=== PATIENT | female | born 1955 | race Caucasian/White ===

== ENCOUNTER 2019-08-26 09:50 | Outpatient (CLI) | payer BC, SELFPAY ==
[2019-08-26 10:05] LABS: Basophils Absolute Auto 0.05 K/mm3 (0.00-0.10); Basophils Percent Auto 0.8 % (0.0-1.0); Eosinophils Percent Auto 5.1 % (1.0-6.0); Hematocrit 38.6 % (35.0-42.0); Hemoglobin 12.9 g/dL (11.7-13.8); Immature Granulocyte Absolute 0.03 K/mm3 (0.00-0.00); Immature Granulocyte Percent A 0.5 % (0.0-0.0); Lymphocytes Absolute Auto 1.43 K/mm3 (1.10-4.50); Lymphocytes Percent Auto 24.2 % (18.0-42.0); Mean Corpuscular HGB Conc 33.4 g/dL (32.0-36.0); Mean Corpuscular Hemoglobin 32.1 pg (27.0-31.0); Mean Platelet Volume 10.1 fl (9.2-11.8); Monocytes Absolute Auto 0.45 K/mm3 (0.10-0.90); Monocytes Percent Auto 7.6 % (2.0-11.0); Neutrophils Absolute Auto 3.7 K/mm3 (1.7-7.2); Neutrophils Percent Auto 61.8 % (50.0-70.0); Platelet Count Result 244 K/mm3 (150-420); Red Blood Count 4.02 M/mm3 (4.20-5.40); Red Cell Distribution Width 13.5 % (11.6-14.4); White Blood Count 5.9 K/mm3 (4.8-10.8)
[2019-08-26 10:06] LABS: Appearance Urine Clear (Clear); Bilirubin Urine Negative (Negative); Color Urine Yellow (Yellow); Glucose Urine UA Negative (Negative); Ketones Urine Negative (Negative); Leukocyte Esterase Ur 1+ (Negative); Nitrate Urine Negative (Negative); Protein Urine Negative (Negative); Specific Grav Ur 1.025 (1.010-1.020); Urobilinogen Urine 0.2 mg/dL (0.2-1.0)
[2019-08-26 10:12] LABS: Creatinine Urine 97.88 mg/dL (40-278); MALB Creatinine Ratio 6.9 mg/g (0-30); Microalbumin Urine Random 6.8 mg/L
[2019-08-26 10:14] LABS: Hemoglobin A1C 6.2 % (<5.7)
[2019-08-26 10:15] LABS: Add Urine Microscopic? YES; Bacteria Urine Trace /hpf; Blood Urine Trace (Negative); RBC Urine 0-2 /hpf (0-2); Squamous Epithelial Cell Urine Few /hpf (Few); WBC Urine 0-3 /hpf (0-3)
[2019-08-26 10:43] LABS: Alanine Aminotransferase 42 U/L (14-59); Albumin Level 3.9 g/dL (3.4-5.0); Alkaline Phosphatase 69 U/L (46-116); Anion Gap 14.5 mmol/L (7-16); Aspartate Amino Transferase 27 U/L (15-37); Bilirubin,Total 0.3 mg/dL (0.00-1.00); Blood Urea Nitrogen 33 mg/dL (7-18); Calcium 9.3 mg/dL (8.5-10.1); Carbon Dioxide 28 mmol/L (21-32); Chloride 105 mmol/L (98-108); Cholesterol 207 mg/dL (0-200); Creatine Kinase 106 U/L (26-192); Estimated Glomerular Filt Rate 39; Glucose 99 mg/dL (70-99); HDL Direct 74 mg/dL (40-60); LDL Cholesterol Calculated 101 mg/dL (<130); Osmolality Calculated 303 mOsm/kg (285-295); Potassium 4.5 mmol/L (3.5-5.1); Sodium 143 mmol/L (136-145); Total Protein 7.5 g/dL (6.4-8.2); Triglycerides 160 mg/dL (0-150)
[2019-08-29 19:08] LABS: Vitamin D 25 Hydroxy 49 ng/mL (30-100)
[2019-08-30 14:18] LABS: Parathyroid Intact 70 pg/mL (14-64)
== END 2019-08-26 09:51 | disposition home or self-care (01) ==
LOC: CHSLAB 09:52
PROVIDERS: PCP Internal Medicine; Visit Provider Internal Medicine
DX: R73.01 Impaired fasting glucose (principal); E21.0 Primary hyperparathyroidism; I10 Essential (primary) hypertension; M18.2 Bilateral post-traumatic osteoarthritis of first carpometacarpal joints
CPT/HCPCS: 36415; 80053; 80061; 81001; 82043; 82306; 82550; 83036; 83970; 85025

== ENCOUNTER 2019-10-14 11:08 | Outpatient (CLI) | payer BC, SELFPAY ==
[2019-10-14 11:46] LABS: Anion Gap 10.8 mmol/L (7-16); Blood Urea Nitrogen 32 mg/dL (7-18); Calcium 9.5 mg/dL (8.5-10.1); Carbon Dioxide 29 mmol/L (21-32); Chloride 104 mmol/L (98-108); Estimated Glomerular Filt Rate 38; Glucose 101 mg/dL (70-99); Osmolality Calculated 294 mOsm/kg (285-295); Potassium 4.8 mmol/L (3.5-5.1); Sodium 139 mmol/L (136-145)
== END 2019-10-14 11:09 | disposition home or self-care (01) ==
LOC: CHSLAB 11:10
PROVIDERS: PCP Internal Medicine; Visit Provider Internal Medicine
DX: N18.2 Chronic kidney disease, stage 2 (mild) (principal)
CPT/HCPCS: 36415; 80048

== ENCOUNTER 2019-11-16 08:53 | Outpatient (CLI) | payer BC, SELFPAY ==
--- NOTE | ~2019-11-16 | US_ITS ---
EXAMINATION: US retroperitoneal comp DATE: 11/16/2019 09:47 INDICATION: Stage II chronic kidney disease TECHNIQUE: Multiple ultrasound grayscale images of the kidneys were obtained. COMPARISON: 02/20/2017 FINDINGS: The right kidney measures 9.8 x 4.3 x 5.0 cm. The left kidney measures 8.5 x 5.2 x 5.0 cm. Relatively symmetric mild bilateral renal cortical thinning. The kidneys demonstrate normal echogenicity. There is no hydronephrosis in either kidney. No stones identified. The bladder is normal. Diffuse hepatic steatosis. IMPRESSION: 1. Mild bilateral renal cortical atrophy without hydronephrosis. 2. Diffuse hepatic steatosis. Reviewed, dictated and finalized at location B.
== END 2019-11-16 08:54 | disposition home or self-care (01) ==
PROVIDERS: PCP Internal Medicine; Visit Provider Internal Medicine
DX: N18.2 Chronic kidney disease, stage 2 (mild) (principal)
CPT/HCPCS: 76770

== ENCOUNTER 2019-12-14 10:02 | Outpatient (CLI) | payer BC, SELFPAY ==
[2019-12-15 01:34] LABS: SARS-CoV-2 RNA PCR Negative
== END 2019-12-14 10:03 | disposition home or self-care (01) ==
PROVIDERS: PCP Internal Medicine; Visit Provider Internal Medicine
DX: Z20.828 Contact with and (suspected) exposure to other viral communicable diseases (principal)
CPT/HCPCS: 87635; C9803; U0003

== ENCOUNTER 2020-03-16 09:20 | Outpatient (CLI) | payer BC, SELFPAY ==
[2020-03-16 09:32] LABS: Basophils Absolute Auto 0.06 K/mm3 (0.00-0.10); Eosinophils Absolute Auto 0.28 K/mm3 (0.02-0.50); Eosinophils Percent Auto 4.6 % (1.0-6.0); Hematocrit 38.8 % (35.0-42.0); Hemoglobin 12.7 g/dL (11.7-13.8); Immature Granulocyte Absolute 0.02 K/mm3 (0.00-0.00); Immature Granulocyte Percent A 0.3 % (0.0-0.0); Lymphocytes Absolute Auto 1.87 K/mm3 (1.10-4.50); Lymphocytes Percent Auto 30.5 % (18.0-42.0); Mean Corpuscular HGB Conc 32.7 g/dL (32.0-36.0); Mean Corpuscular Volume 97.7 fL (78.0-102.0); Monocytes Percent Auto 6.5 % (2.0-11.0); Neutrophils Absolute Auto 3.5 K/mm3 (1.7-7.2); Neutrophils Percent Auto 57.1 % (50.0-70.0); Platelet Count Result 229 K/mm3 (150-420); Red Blood Count 3.97 M/mm3 (4.20-5.40); White Blood Count 6.1 K/mm3 (4.8-10.8)
[2020-03-16 09:34] LABS: Add Urine Microscopic? YES; Appearance Urine Clear (Clear); Bilirubin Urine Negative (Negative); Blood Urine Negative (Negative); Color Urine Yellow (Yellow); Glucose Urine UA Negative (Negative); Ketones Urine Negative (Negative); Leukocyte Esterase Ur 1+ LEU/UL (Negative); Nitrate Urine Negative (Negative); Protein Urine Negative (Negative); Specific Grav Ur 1.025 (1.010-1.020); Urobilinogen Urine 0.2 mg/dL (0.2-1.0)
[2020-03-16 09:44] LABS: Creatinine Urine 129.87 mg/dL (40-278); Microalbumin Urine Random < 13.0 mg/L
[2020-03-16 09:47] LABS: Hemoglobin A1C 5.9 % (<5.7)
[2020-03-16 09:52] LABS: Bacteria Urine 1+ /hpf; RBC Urine None seen /hpf (0-2); Squamous Epithelial Cell Urine Moderate /hpf (Few); WBC Urine 0-3 /hpf (0-3)
[2020-03-16 10:25] LABS: Alanine Aminotransferase 33 U/L (14-59); Alkaline Phosphatase 59 U/L (46-116); Anion Gap 7 mmol/L (8-16); Aspartate Amino Transferase 22 U/L (15-37); Bilirubin,Total 0.7 mg/dL (0.00-1.00); Blood Urea Nitrogen 29 mg/dL (7-18); Calcium 9.4 mg/dL (8.5-10.1); Carbon Dioxide 29 mmol/L (21-32); Chloride 102 mmol/L (98-108); Cholesterol 197 mg/dL (0-200); Creatine Kinase 115 U/L (26-192); Estimated Glomerular Filt Rate 48; Free T3 2.58 pg/mL (2.18-3.98); Free T4 Free Thyroxine 1.12 ng/dL (0.76-1.46); Glucose 106 mg/dL (70-99); HDL Direct 81 mg/dL (40-60); LDL Cholesterol Calculated 98 mg/dL (<130); Osmolality Calculated 291 mOsm/kg (285-295); Potassium 4.7 mmol/L (3.5-5.1); Sodium 138 mmol/L (136-145); Thyroid Stimulating Hormone 1.81 uIU/mL (0.36-3.74); Total Protein 7.5 g/dL (6.4-8.2); Triglycerides 90 mg/dL (0-150)
[2020-03-19 11:40] LABS: Vitamin D 25 Hydroxy 68 ng/mL (30-100)
[2020-03-19 14:55] LABS: Parathyroid Intact 63 pg/mL (14-64)
== END 2020-03-16 09:21 | disposition home or self-care (01) ==
LOC: CHSLAB 09:21
PROVIDERS: PCP Internal Medicine; Visit Provider Internal Medicine
DX: R73.01 Impaired fasting glucose (principal); E78.5 Hyperlipidemia, unspecified; R31.9 Hematuria, unspecified; E21.0 Primary hyperparathyroidism
CPT/HCPCS: 36415; 80053; 80061; 81001; 82043; 82306; 82550; 83036; 83970; 84439; 84443; 84481; 85025; 87086

== ENCOUNTER 2020-05-29 15:20 | Outpatient (CLI) | payer BC, SELFPAY ==
--- NOTE | ~2020-05-29 | DEXA_ITS ---
Bone Density Report Name: Ami Escobar Age: 64 Sex: Female Ethnicity: White Date of : 1955 Indication: postmenopausal; screening for osteoporosis; asthma or emphysema; Referring Provider: Gwendolyn Avina Study: Bone densitometry was performed. Exam Date: May 29, 2020 Accession number: [id number] Bone Density: Region BMD T-score Z-score Classification AP Spine(L2, L3, L4) 1.397 2.9 4.8 Normal Femoral Neck (Left) 0.657 -1.7 -0.2 Osteopenia Total Hip (Left) 0.888 -0.4 0.8 Normal Femoral Neck (Right) 0.673 -1.6 0.0 Osteopenia Total Hip (Right) 0.880 -0.5 0.8 Normal Femoral Neck Mean 0.665 -1.7 -0.1 Osteopenia Total Hip Mean 0.884 -0.5 0.8 Normal World Health Organization criteria for BMD impression classify patients as: Normal (T-score at or above -1.0), Osteopenia (T-score between -1.0 and -2.5), or Osteoporosis (T-score at or below -2.5). 10-year Fracture Risk(1): Major Osteoporotic Fracture 9.5% Hip Fracture 1.3% Reported Risk Factors: [place] (), Neck BMD=0.657, BMI=23.6 (1) FRAX(R) Version 3.08. Fracture probability calculated for an untreated patient. Fracture probability may be lower if the patient has received treatment. Previous Exams: Region Exam Age BMD T-score BMD Change BMD Change Date g/cm2 vs Baseline vs Previous AP Spine (L2-L4) 05/29/2020 64 1.397 2.9 -0.159 (-10.2% -0.159 (-10.2% 10/15/2017 62 1.556 4.3 Total Hip(Left) 05/29/2020 64 0.888 -0.4 -0.007 (-0.8%) -0.007 (-0.8%) 10/15/2017 62 0.895 -0.4 *Denotes significance at 95% confidence level, LSC for AP Spine = 0.022 g/cm2, LSC for Total Hip = 0.027 g/cm2 # Denotes dissimilar scan types or analysis methods Clinical Information Provided by Patient: Has used the following medications: Vitamin D Has the following medical conditions: Asthma or Emphysema Patient maximum height was 61 No regular weight bearing exercise Drinks caffeinated beverages Onset of menses at age 11 Number of children 3 Impression: The patient has low bone mass, based on the Left Femoral Neck T-score. No significant bone loss was observed. Discussion: BONE DENSITY IS LOW AT ONE OR MORE SKELETAL SITES. This patient's lowest T-score is low at one or more skeletal sites. It meets the World Health Organization's (WHO) criteria for ?low bone mass? (T-score between -1.0 and -2.5). The patient's 10-year risk of fracture as calculated by FRAX is less than the threshold where ph
== END 2020-05-29 15:21 | disposition home or self-care (01) ==
LOC: CHSIMG 15:21
PROVIDERS: PCP Internal Medicine; Visit Provider Internal Medicine
DX: M81.0 Age-related osteoporosis without current pathological fracture (principal)
CPT/HCPCS: 77080

== ENCOUNTER 2020-09-07 12:09 | Outpatient (CLI) | payer BC, SELFPAY ==
[2020-09-07 12:25] LABS: Basophils Absolute Auto 0.07 K/mm3 (0.00-0.10); Basophils Percent Auto 0.9 % (0.0-1.0); Eosinophils Absolute Auto 0.25 K/mm3 (0.02-0.50); Eosinophils Percent Auto 3.3 % (1.0-6.0); Hematocrit 40.2 % (35.0-42.0); Hemoglobin 13.5 g/dL (11.7-13.8); Immature Granulocyte Absolute 0.02 K/mm3 (0.00-0.00); Immature Granulocyte Percent A 0.3 % (0.0-0.0); Lymphocytes Absolute Auto 2.17 K/mm3 (1.10-4.50); Lymphocytes Percent Auto 28.9 % (18.0-42.0); Mean Corpuscular HGB Conc 33.6 g/dL (32.0-36.0); Mean Corpuscular Hemoglobin 31.6 pg (27.0-31.0); Mean Corpuscular Volume 94.1 fL (78.0-102.0); Mean Platelet Volume 10.5 fl (9.2-11.8); Monocytes Absolute Auto 0.42 K/mm3 (0.10-0.90); Monocytes Percent Auto 5.6 % (2.0-11.0); Neutrophils Absolute Auto 4.6 K/mm3 (1.7-7.2); Platelet Count Result 266 K/mm3 (150-420); Red Blood Count 4.27 M/mm3 (4.20-5.40); Red Cell Distribution Width 12.8 % (11.6-14.4); White Blood Count 7.5 K/mm3 (4.8-10.8)
[2020-09-07 12:30] LABS: Add Urine Microscopic? YES; Appearance Urine Clear (Clear); Bilirubin Urine Negative (Negative); Blood Urine Trace-Intact (Negative); Color Urine Light Yellow (Yellow); Glucose Urine UA Negative (Negative); Hemoglobin A1C 6.2 % (<5.7); Ketones Urine Negative (Negative); Leukocyte Esterase Ur 2+ (Negative); Nitrate Urine Negative (Negative); Protein Urine Negative (Negative); RBC Urine 0-2 /hpf (0-2); Specific Grav Ur 1.025 (1.010-1.020); Urobilinogen Urine 0.2 mg/dL (0.2-1.0); pH Urine 5.5 (5.0-8.0)
[2020-09-07 12:31] LABS: Bacteria Urine 1+ /hpf; Squamous Epithelial Cell Urine Few /hpf (Few); WBC Urine 16-20 /hpf (0-3)
[2020-09-07 13:11] LABS: Alanine Aminotransferase 35 U/L (14-59); Albumin Level 4.1 g/dL (3.4-5.0); Alkaline Phosphatase 74 U/L (46-116); Anion Gap 10 mmol/L (8-16); Aspartate Amino Transferase 25 U/L (15-37); Bilirubin,Total 0.9 mg/dL (0.00-1.00); Blood Urea Nitrogen 28 mg/dL (7-18); Calcium 9.7 mg/dL (8.5-10.1); Carbon Dioxide 27 mmol/L (21-32); Chloride 103 mmol/L (98-108); Cholesterol 208 mg/dL (0-200); Creatine Kinase 128 U/L (26-192); Estimated Glomerular Filt Rate 48; Glucose 103 mg/dL (70-99); HDL Direct 80 mg/dL (40-60); LDL Cholesterol Calculated 115 mg/dL (<130); Osmolality Calculated 295 mOsm/kg (285-295); Potassium 4.7 mmol/L (3.5-5.1); Sodium 140 mmol/L (136-145); Total Protein 7.5 g/dL (6.4-8.2); Triglycerides 66 mg/dL (0-150)
[2020-09-11 15:33] LABS: Vitamin D 25 Hydroxy 69 ng/mL (30-100)
== END 2020-09-07 12:10 | disposition home or self-care (01) ==
LOC: CHSLAB 12:11
PROVIDERS: PCP Internal Medicine; Visit Provider Internal Medicine
DX: E78.2 Mixed hyperlipidemia (principal); I12.9 Hypertensive chronic kidney disease with stage 1 through stage 4 chronic kidney disease, or unspecified chronic kidney disease; N18.2 Chronic kidney disease, stage 2 (mild); M81.0 Age-related osteoporosis without current pathological fracture; R73.01 Impaired fasting glucose
CPT/HCPCS: 36415; 80053; 80061; 81001; 82306; 82550; 83036; 85025

== ENCOUNTER 2021-03-18 12:42 | Outpatient (CLI) | payer BC, SELFPAY ==
[2021-03-18 13:03] LABS: Basophils Absolute Auto 0.06 K/mm3 (0.00-0.10); Basophils Percent Auto 0.9 % (0.0-1.0); Eosinophils Absolute Auto 0.27 K/mm3 (0.02-0.50); Eosinophils Percent Auto 4.2 % (1.0-6.0); Hematocrit 39.7 % (35.0-42.0); Hemoglobin 13.3 g/dL (11.7-13.8); Immature Granulocyte Absolute 0.02 K/mm3 (0.00-0.00); Immature Granulocyte Percent A 0.3 % (0.0-0.0); Lymphocytes Absolute Auto 1.89 K/mm3 (1.10-4.50); Lymphocytes Percent Auto 29.6 % (18.0-42.0); Mean Corpuscular HGB Conc 33.5 g/dL (32.0-36.0); Mean Corpuscular Hemoglobin 32.4 pg (27.0-31.0); Mean Corpuscular Volume 96.6 fL (78.0-102.0); Mean Platelet Volume 10.3 fl (9.2-11.8); Monocytes Absolute Auto 0.43 K/mm3 (0.10-0.90); Monocytes Percent Auto 6.7 % (2.0-11.0); Neutrophils Absolute Auto 3.7 K/mm3 (1.7-7.2); Neutrophils Percent Auto 58.3 % (50.0-70.0); Platelet Count Result 254 K/mm3 (150-420); Red Blood Count 4.11 M/mm3 (4.20-5.40); Red Cell Distribution Width 13.1 % (11.6-14.4); White Blood Count 6.4 K/mm3 (4.8-10.8)
[2021-03-18 13:09] LABS: Appearance Urine Clear (Clear); Bilirubin Urine Negative (Negative); Color Urine Light Yellow (Yellow); Glucose Urine UA Negative (Negative); Ketones Urine Negative (Negative); Leukocyte Esterase Ur 1+ (Negative); Nitrate Urine Negative (Negative); Protein Urine Negative (Negative); Urobilinogen Urine 0.2 mg/dL (0.2-1.0)
[2021-03-18 13:35] LABS: Hemoglobin A1C 6.4 % (<5.7)
[2021-03-18 13:42] LABS: Add Urine Microscopic? YES; Bacteria Urine 1+ /hpf; Blood Urine Trace-Intact (Negative); RBC Urine None seen /hpf (0-2); Squamous Epithelial Cell Urine Few /hpf (Few)
[2021-03-18 15:05] LABS: Alanine Aminotransferase 42 U/L (14-59); Albumin Level 4.1 g/dL (3.4-5.0); Alkaline Phosphatase 73 U/L (46-116); Anion Gap 12 mmol/L (8-16); Aspartate Amino Transferase 26 U/L (15-37); Bilirubin,Total 0.9 mg/dL (0.00-1.00); Blood Urea Nitrogen 26 mg/dL (7-18); Calcium 9.7 mg/dL (8.5-10.1); Carbon Dioxide 28 mmol/L (21-32); Chloride 100 mmol/L (98-108); Cholesterol 209 mg/dL (0-200); Creatine Kinase 98 U/L (26-192); Estimated Glomerular Filt Rate 49; Free T4 Free Thyroxine 1.27 ng/dL (0.76-1.46); Glucose 105 mg/dL (70-99); HDL Direct 83 mg/dL (40-60); LDL Cholesterol Calculated 106 mg/dL (<130); Osmolality Calculated 294 mOsm/kg (285-295); Potassium 4.6 mmol/L (3.5-5.1); Sodium 140 mmol/L (136-145); Thyroid Stimulating Hormone 2.47 uIU/mL (0.36-3.74); Total Protein 7.6 g/dL (6.4-8.2); Triglycerides 99 mg/dL (0-150)
[2021-03-21 14:15] LABS: Vitamin D 25 Hydroxy 72 ng/mL (30-100)
[2021-03-26 20:53] LABS: Parathyroid Intact 53 pg/mL (14-64)
== END 2021-03-18 12:43 | disposition home or self-care (01) ==
LOC: CHSLAB 12:44
PROVIDERS: PCP Internal Medicine; Visit Provider Internal Medicine
DX: E78.2 Mixed hyperlipidemia (principal); I12.9 Hypertensive chronic kidney disease with stage 1 through stage 4 chronic kidney disease, or unspecified chronic kidney disease; N18.2 Chronic kidney disease, stage 2 (mild); M81.0 Age-related osteoporosis without current pathological fracture; R73.01 Impaired fasting glucose; E21.0 Primary hyperparathyroidism
CPT/HCPCS: 36415; 80053; 80061; 81001; 82306; 82550; 83036; 83970; 84439; 84443; 84481; 85025

== ENCOUNTER 2021-06-16 01:33 | Day surgery (SDC) | payer BC, SELFPAY ==
[2021-06-04 09:11] VITALS: BMI 23.6
[2021-06-16 06:23] VITALS: BP 178/101; PULSE 97; RESP 22; TEMP 36.9; O2SAT 100; BMI 23.3
[2021-06-16] MEDS: LACTATED RINGERS 1,000 ML 150 ML IV CONT (06:38)
--- NOTE | 2021-06-16 07:26 | P.PNAN_ITS ---
Anes - Initial Pre Proc Eval Procedure: Operation Date: 06/16/21 07:30 Proposed Procedures p Screening Colonoscopy - Néstor Bates MD Date/Time: 06/16/21 07:26 Surgeon: Néstor Bates MD Pre Op Diagnosis: hx of colon polyps Patient Data Age: 65 Gender: F Height: 1.55 m Weight: 56.2 kg Last Vital Signs Temp 98.4 F 06/16/21 06:23 Pulse 97 06/16/21 06:23 Resp 22 H 06/16/21 06:23 BP 178/101 H 06/16/21 06:23 Pulse Ox 100 06/16/21 06:23 Allergies Allergy/AdvReac Type Severity Reaction Status Date / Time No Known Allergies Allergy Verified 06/16/21 06:20 Home Medications Medication Instructions Recorded Confirmed Type atorvastatin 40 mg PO DAILY 06/04/21 06/04/21 History carvedilol 25 mg PO DAILY 06/04/21 06/04/21 History clonidine HCl 0.1 mg PO DAILY 06/04/21 06/04/21 History montelukast 10 mg PO DAILY 06/04/21 06/04/21 History valsartan 160 mg PO DAILY 06/04/21 06/04/21 History Patient hx anesthesia problems: none Family hx anesthesia problems: none Results Review: All pre-operative results and documents have been reviewed as part of the pre-operative evaluation. [facility] Social History Social History Smoking status: Never smoker Alcohol intake: current Drinks per week: 5 Substance use type: does not use Living arrangements: alone Spiritual care concerns: No Anes - Eval Final PreProcedure Day of Procedure 06/16/21 07:26 Patient weight: normal Heart: regular rate and rhythm Lungs: clear to auscultation Airway: Mallampati scale class II Neurological: alert and oriented Last oral intake: >/= 8 hours ASA classification: III Emergent: no Anesthetic plan: proceed Anesthesia type and monitoring: general GIVS and standard monitoring Results Review: All pre-operative results and documents have been reviewed as part of the pre-operative evaluation. Informed Consent: The patient's anesthetic plan and its attendant risks and benefits were discussed with the patient/family/POA. Questions were solicited and answers provided to the satisfaction of the patient/family/POA.
--- NOTE | 2021-06-16 07:28 | WPDGICN ---
Assessment and Plan Assessment and plan (1) History of colon polyps: Code(s): Z86.010 - Personal history of colonic polyps Status: Acute Assessment and Plan: Patient has a history of colon polyps in the past. Most recently 2016. Plan is for surveillance colonoscopy at this time. Further recommendations will be given after endoscopy. GI Consult Note Consult date/time: 06/16/21 07:28 HPI: Ami Escobar is a 65 year old female Presents for screening colonoscopy. Patient has a history of colon polyp removed in 2017. She reports her current weight appetite bowel movements are normal. She denies abdominal pain. She has had no bleeding. Patient presents today for screening colonoscopy. Review of Systems Review of Systems: All systems reviewed & are unremarkable except as noted in HPI and below PMFSH Social History Social History Smoking status: Never smoker Alcohol intake: current Drinks per week: 5 Substance use type: does not use Living arrangements: alone Spiritual care concerns: No Meds Home Medications and Allergies Home Medications Medication Instructions Recorded Confirmed Type atorvastatin 40 mg PO DAILY 06/04/21 06/04/21 History carvedilol 25 mg PO DAILY 06/04/21 06/04/21 History clonidine HCl 0.1 mg PO DAILY 06/04/21 06/04/21 History montelukast 10 mg PO DAILY 06/04/21 06/04/21 History valsartan 160 mg PO DAILY 06/04/21 06/04/21 History Allergies Allergy/AdvReac Type Severity Reaction Status Date / Time No Known Allergies Allergy Verified 06/16/21 06:20 Vital Signs Vital Signs - 24 hr 06/16/21 06:23 Temperature 98.4 F Pulse Rate 97 Respiratory Rate 22 H Blood Pressure 178/101 H Pulse Oximetry 100 Exam Narrative: Physical exam reveals patient be alert. Vital signs stable. HEENT exam is unremarkable. Patient is anicteric. Lungs are clear to auscultation and percussion. Heart is without murmur or extra sounds. Abdominal exam bowel sounds present soft nontender with no organomegaly. Digital external rectal exam is normal.
[2021-06-16] MEDS: SIMETHICONE ORAL SUSPENSION 20 MG/0.3 ML 30 ML BOTTLE 0.6 ML IRRIGATION (07:47)
[2021-06-16 07:50] VITALS: BP 140/87; PULSE 95; RESP 17; O2SAT 98
[2021-06-16 08:00] VITALS: BP 158/93; PULSE 90; RESP 18; O2SAT 100
[2021-06-16 08:10] VITALS: BP 173/104; PULSE 83; RESP 20; O2SAT 100
== END 2021-06-16 08:18 | disposition home or self-care (01) ==
PROVIDERS: PCP Internal Medicine; Visit Provider Internal Medicine Gastroenterology
PROC: 0DJD8ZZ Inspection of Lower Intestinal Tract, Via Natural or Artificial Opening Endoscopic (ICD-10-PCS; CPT 45378; principal; 2021-06-16 07:30)
DX: Z12.11 Encounter for screening for malignant neoplasm of colon (principal); K57.30 Diverticulosis of large intestine without perforation or abscess without bleeding; Z86.010 Personal history of colon polyps
CPT/HCPCS: 45378; J2704; J7120

== ENCOUNTER 2021-09-22 09:51 | Outpatient (CLI) | payer BC, SELFPAY ==
[2021-09-22 10:05] LABS: Basophils Absolute Auto 0.07 K/mm3 (0.00-0.10); Basophils Percent Auto 0.9 % (0.0-1.0); Eosinophils Absolute Auto 0.38 K/mm3 (0.02-0.50); Eosinophils Percent Auto 4.8 % (1.0-6.0); Hematocrit 37.3 % (35.0-42.0); Hemoglobin 12.4 g/dL (11.7-13.8); Immature Granulocyte Absolute 0.04 K/mm3 (0.00-0.00); Immature Granulocyte Percent A 0.5 % (0.0-0.0); Lymphocytes Absolute Auto 1.47 K/mm3 (1.10-4.50); Lymphocytes Percent Auto 18.4 % (18.0-42.0); Mean Corpuscular HGB Conc 33.2 g/dL (32.0-36.0); Mean Corpuscular Hemoglobin 32.3 pg (27.0-31.0); Mean Corpuscular Volume 97.1 fL (78.0-102.0); Monocytes Absolute Auto 0.57 K/mm3 (0.10-0.90); Monocytes Percent Auto 7.1 % (2.0-11.0); Neutrophils Absolute Auto 5.5 K/mm3 (1.7-7.2); Neutrophils Percent Auto 68.3 % (50.0-70.0); Platelet Count Result 259 K/mm3 (150-420); Red Blood Count 3.84 M/mm3 (4.20-5.40); Red Cell Distribution Width 13.9 % (11.6-14.4)
[2021-09-22 10:07] LABS: Appearance Urine Clear (Clear); Bilirubin Urine Negative (Negative); Color Urine Brown (Yellow); Glucose Urine UA Negative (Negative); Ketones Urine Negative (Negative); Leukocyte Esterase Ur 2+ (Negative); Nitrate Urine Negative (Negative); Protein Urine Negative (Negative); Specific Grav Ur >= 1.030 (1.010-1.020); Urobilinogen Urine 0.2 mg/dL (0.2-1.0)
[2021-09-22 10:12] LABS: Add Urine Microscopic? YES; Bacteria Urine Trace /hpf; Blood Urine Trace-Intact (Negative); RBC Urine None seen /hpf (0-2); Squamous Epithelial Cell Urine Moderate /hpf (Few); WBC Urine 16-20 /hpf (0-3)
[2021-09-22 10:30] LABS: Alanine Aminotransferase 33 U/L (14-59); Albumin Level 3.7 g/dL (3.4-5.0); Alkaline Phosphatase 71 U/L (46-116); Anion Gap 7 mmol/L (8-16); Aspartate Amino Transferase 21 U/L (15-37); Bilirubin,Total 0.8 mg/dL (0.00-1.00); Blood Urea Nitrogen 32 mg/dL (7-18); Calcium 9.1 mg/dL (8.5-10.1); Carbon Dioxide 26 mmol/L (21-32); Chloride 106 mmol/L (98-108); Cholesterol 170 mg/dL (0-200); Creatine Kinase 123 U/L (26-192); Estimated Glomerular Filt Rate 40; Glucose 119 mg/dL (70-99); HDL Direct 73 mg/dL (40-60); LDL Cholesterol Calculated 81 mg/dL (<130); Osmolality Calculated 295 mOsm/kg (285-295); Potassium 3.7 mmol/L (3.5-5.1); Sodium 139 mmol/L (136-145); Total Protein 7.4 g/dL (6.4-8.2); Triglycerides 81 mg/dL (0-150)
[2021-09-24 17:21] LABS: Vitamin D 25 Hydroxy 90 ng/mL (30-100)
[2021-09-25 10:07] LABS: Parathyroid Intact 51 pg/mL (14-64)
== END 2021-09-22 09:52 | disposition home or self-care (01) ==
LOC: CHSLAB 09:54
PROVIDERS: PCP Internal Medicine; Visit Provider Internal Medicine
DX: R73.01 Impaired fasting glucose (principal); I12.9 Hypertensive chronic kidney disease with stage 1 through stage 4 chronic kidney disease, or unspecified chronic kidney disease; N18.2 Chronic kidney disease, stage 2 (mild); M81.0 Age-related osteoporosis without current pathological fracture; E78.2 Mixed hyperlipidemia; E21.0 Primary hyperparathyroidism
CPT/HCPCS: 36415; 80053; 80061; 81001; 82306; 82550; 83036; 83970; 85025

== ENCOUNTER 2021-11-18 17:06 | Outpatient (CLI) | payer BC, SELFPAY ==
[2021-11-18 17:36] LABS: Basophils Absolute Auto 0.11 K/mm3 (0.00-0.10); Basophils Percent Auto 0.9 % (0.0-1.0); Eosinophils Absolute Auto 0.26 K/mm3 (0.02-0.50); Eosinophils Percent Auto 2.2 % (1.0-6.0); Hematocrit 36.3 % (35.0-42.0); Hemoglobin 11.9 g/dL (11.7-13.8); Immature Granulocyte Absolute 0.07 K/mm3 (0.00-0.00); Immature Granulocyte Percent A 0.6 % (0.0-0.0); Lymphocytes Absolute Auto 2.31 K/mm3 (1.10-4.50); Lymphocytes Percent Auto 19.9 % (18.0-42.0); Mean Corpuscular HGB Conc 32.8 g/dL (32.0-36.0); Mean Corpuscular Hemoglobin 31.1 pg (27.0-31.0); Mean Corpuscular Volume 94.8 fL (78.0-102.0); Mean Platelet Volume 10.1 fl (9.2-11.8); Monocytes Absolute Auto 1.02 K/mm3 (0.10-0.90); Monocytes Percent Auto 8.8 % (2.0-11.0); Neutrophils Absolute Auto 7.9 K/mm3 (1.7-7.2); Neutrophils Percent Auto 67.6 % (50.0-70.0); Platelet Count Result 389 K/mm3 (150-420); Red Blood Count 3.83 M/mm3 (4.20-5.40); Red Cell Distribution Width 13.2 % (11.6-14.4); White Blood Count 11.6 K/mm3 (4.8-10.8)
[2021-11-18 17:48] LABS: Add Urine Microscopic? YES; Appearance Urine Clear (Clear); Bilirubin Urine 1+ (Negative); Blood Urine Negative (Negative); Color Urine Yellow (Yellow); Glucose Urine UA Negative (Negative); Ketones Urine 1+ (Negative); Leukocyte Esterase Ur 2+ (Negative); Nitrate Urine Negative (Negative); Protein Urine Negative (Negative); Specific Grav Ur 1.025 (1.010-1.020); pH Urine 5.5 (5.0-8.0)
[2021-11-18 17:52] LABS: Alanine Aminotransferase 32 U/L (14-59); Albumin Level 3.4 g/dL (3.4-5.0); Alkaline Phosphatase 73 U/L (46-116); Anion Gap 10 mmol/L (8-16); Aspartate Amino Transferase 21 U/L (15-37); Bilirubin,Total 0.5 mg/dL (0.00-1.00); Blood Urea Nitrogen 39 mg/dL (7-18); Calcium 9.2 mg/dL (8.5-10.1); Carbon Dioxide 26 mmol/L (21-32); Chloride 103 mmol/L (98-108); Estimated Glomerular Filt Rate 30; Glucose 112 mg/dL (70-99); Osmolality Calculated 298 mOsm/kg (285-295); Potassium 4.1 mmol/L (3.5-5.1); Sodium 139 mmol/L (136-145); Total Protein 7.2 g/dL (6.4-8.2)
[2021-11-18 17:53] LABS: RBC Urine 0-2 /hpf (0-2); WBC Urine 21-30 /hpf (0-3)
[2021-11-18 17:54] LABS: Bacteria Urine 1+ /hpf; Squamous Epithelial Cell Urine Moderate /hpf (Few)
== END 2021-11-18 17:07 | disposition home or self-care (01) ==
LOC: CHSLAB 17:09
PROVIDERS: PCP Internal Medicine; Visit Provider Internal Medicine
DX: R19.7 Diarrhea, unspecified (principal); I95.9 Hypotension, unspecified
CPT/HCPCS: 36415; 80053; 81001; 85025

== ENCOUNTER 2021-11-20 07:59 | Outpatient (CLI) | payer BC, SELFPAY ==
[2021-11-20 08:25] LABS: Anion Gap 10 mmol/L (8-16); Blood Urea Nitrogen 24 mg/dL (7-18); Calcium 9.2 mg/dL (8.5-10.1); Carbon Dioxide 26 mmol/L (21-32); Chloride 102 mmol/L (98-108); Estimated Glomerular Filt Rate 38; Glucose 121 mg/dL (70-99); Osmolality Calculated 291 mOsm/kg (285-295); Potassium 4.5 mmol/L (3.5-5.1); Sodium 138 mmol/L (136-145)
== END 2021-11-20 08:00 | disposition home or self-care (01) ==
LOC: CHSLAB 08:00
PROVIDERS: PCP Internal Medicine; Visit Provider Internal Medicine
DX: I10 Essential (primary) hypertension (principal)
CPT/HCPCS: 36415; 80048; 87045; 87324; 87427

== ENCOUNTER 2021-12-29 13:37 | Outpatient (CLI) | payer BC, SELFPAY ==
[2021-12-29 14:32] LABS: Anion Gap 8 mmol/L (8-16); Blood Urea Nitrogen 17 mg/dL (7-18); Carbon Dioxide 30 mmol/L (21-32); Chloride 105 mmol/L (98-108); Estimated Glomerular Filt Rate 55; Potassium 3.7 mmol/L (3.5-5.1); Sodium 143 mmol/L (136-145)
[2021-12-29 14:38] LABS: Glucose 92 mg/dL (70-99); Osmolality Calculated 297 mOsm/kg (285-295)
== END 2021-12-29 13:38 | disposition home or self-care (01) ==
LOC: CHSLAB 13:39
PROVIDERS: PCP Internal Medicine; Visit Provider Internal Medicine
DX: N18.2 Chronic kidney disease, stage 2 (mild) (principal)
CPT/HCPCS: 36415; 80048

== ENCOUNTER 2022-01-28 11:40 | Outpatient (CLI) | payer BC, SELFPAY ==
--- NOTE | ~2022-01-28 | CT_ITS ---
EXAMINATION: CT abdomen pelvis w con INDICATION: Acute abdominal pain and diarrhea TECHNIQUE: Computed tomographic images of the abdomen and pelvis were obtained after the administrati on of 100 cc of Omnipaque 350 intravenous contrast. The dose-length product (DLP) was 262.48 mGy-cm. Automated exposure control and iterative reconstruction technique were employed. COMPARISON: 02/20/2017 FINDINGS: Minimal dependent atelectasis is present in the lung bases. The heart size is normal. There is a moderate-sized sliding hiatal hernia. There is a stable 3 mm nodule of the right middle lobe. 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 The gallbladder is surgically absent. The spleen, pancreas, and adre nal glands are normal. The kidneys are unremarkable. No pathologically enlarged abdominal or pelvic l ymph nodes are identified. There is colonic diverticulosis. There appears to be a 2.3 x 1.6 cm intram ural abscess in the wall of the descending colon. There is surrounding inflammatory change. No free i ntraperitoneal gas is identified. There is also questionable mild wall thickening of the ascending co conner and cecum. There is severe lumbar spondylosis. IMPRESSION: 1. Apparent intramural abscess of the descending colon likely related to diverticulitis. 2. Wall thickening of the cecum and ascending colon which could reflect colitis. 3. Moderate size hiatal hernia. Reviewed, dictated and finalized at location F. STMAS BELL RINGER IMPRESSION: 1. Apparent intramural abscess of the descending colon likely related to divert iculitis. 2. Wall thickening of the cecum and ascending colon which could reflect colitis . 3. Moderate size hiatal hernia.
[2022-01-28 11:58] LABS: Basophils Absolute Auto 0.08 K/mm3 (0.00-0.10); Basophils Percent Auto 0.6 % (0.0-1.0); Eosinophils Absolute Auto 0.21 K/mm3 (0.02-0.50); Eosinophils Percent Auto 1.7 % (1.0-6.0); Hematocrit 36.7 % (35.0-42.0); Immature Granulocyte Absolute 0.08 K/mm3 (0.00-0.00); Immature Granulocyte Percent A 0.6 % (0.0-0.0); Lymphocytes Percent Auto 14.3 % (18.0-42.0); Mean Corpuscular HGB Conc 32.7 g/dL (32.0-36.0); Mean Corpuscular Hemoglobin 30.9 pg (27.0-31.0); Mean Corpuscular Volume 94.6 fL (78.0-102.0); Monocytes Percent Auto 6.4 % (2.0-11.0); Neutrophils Absolute Auto 9.6 K/mm3 (1.7-7.2); Neutrophils Percent Auto 76.4 % (50.0-70.0); Platelet Count Result 323 K/mm3 (150-420); Red Blood Count 3.88 M/mm3 (4.20-5.40); Red Cell Distribution Width 14.6 % (11.6-14.4); White Blood Count 12.6 K/mm3 (4.8-10.8)
[2022-01-28 11:59] LABS: Add Urine Microscopic? NO; Appearance Urine Clear (Clear); Bilirubin Urine Negative (Negative); Blood Urine Negative (Negative); Color Urine Yellow (Yellow); Glucose Urine UA Negative (Negative); Ketones Urine Negative (Negative); Leukocyte Esterase Ur Negative LEU/UL (Negative); Nitrate Urine Negative (Negative); Protein Urine Negative (Negative); Specific Grav Ur 1.025 (1.010-1.020); Urobilinogen Urine 0.2 mg/dL (0.2-1.0)
[2022-01-28 12:19] LABS: Alanine Aminotransferase 26 U/L (14-59); Albumin Level 3.1 g/dL (3.4-5.0); Alkaline Phosphatase 77 U/L (46-116); Anion Gap 8 mmol/L (8-16); Aspartate Amino Transferase 18 U/L (15-37); Bilirubin,Total 0.6 mg/dL (0.00-1.00); Blood Urea Nitrogen 18 mg/dL (7-18); Calcium 8.9 mg/dL (8.5-10.1); Carbon Dioxide 27 mmol/L (21-32); Chloride 109 mmol/L (98-108); Estimated Glomerular Filt Rate 42; Glucose 112 mg/dL (70-99); Osmolality Calculated 300 mOsm/kg (285-295); Potassium 3.9 mmol/L (3.5-5.1); Sodium 144 mmol/L (136-145); Total Protein 6.9 g/dL (6.4-8.2)
== END 2022-01-28 11:41 | disposition home or self-care (01) ==
LOC: CHSLAB 11:42
PROVIDERS: PCP Internal Medicine; Visit Provider Internal Medicine
DX: R10.32 Left lower quadrant pain (principal)
CPT/HCPCS: 36415; 74177; 80053; 81003; 85025; 87045; 87324; 87427; Q9967

== ENCOUNTER 2022-02-11 15:09 | Outpatient (CLI) | payer BC, SELFPAY ==
--- NOTE | ~2022-02-11 | CT_ITS ---
EXAMINATION: CT abdomen pelvis w con DATE: 02/11/2022 15:50 INDICATION: Diverticulitis of descending colon TECHNIQUE: Computed tomography (CT) of the abdomen and pelvis was performed with 100 CC Omnipaque 350 intravenous contrast. Automated exposure control and iterative reconstruction technique were employe d. Exam dose: 217.16 mGy-cm total exam DLP. COMPARISON: 01/28/2022 CT abdomen pelvis FINDINGS: The lung bases are clear of infiltrate or consolidation. Heart size is within normal limits . No pericardial or pleural effusion. Small medium-size sliding hiatal hernia. Status post cholecystectomy. No bile duct or pancreatic duct dilatation. No suspicious hepatic mass lesion. Normal splenic size. No pancreatic mass lesion or calcification is detected. Normal morphology of the adrenal glands. No renal mass lesion or urinary tract calculus or hydroureteronephrosis. The most 2.8 cm probable [place] fundic serosal fibroid with calcifications. There is some calcification in the lower uterus. Adn exal areas and urinary bladder are unremarkable. Normal appendix.. There are scattered air-fluid levels the small and large bowel. There is considerab le interval improvement of soft tissue thickening suggests a small intramural abscess as well as nicol colic inflammation at the distal descending colon since 01/28/2022. No drainable abscess cavity is id entified. IMPRESSION: Improvement of distal descending colon diverticulitis since 01/28/2022 Reviewed, dictated and finalized at Location A. Reviewed, dictated and finalized at location B. ROUNDER IMPRESSION: Improvement of distal descending colon diverticulitis since 2021
== END 2022-02-11 15:10 | disposition home or self-care (01) ==
LOC: CHSIMG 15:10
PROVIDERS: PCP Internal Medicine; Visit Provider Internal Medicine
DX: K65.1 Peritoneal abscess (principal)
CPT/HCPCS: 74177; Q9967

== ENCOUNTER 2022-02-15 14:55 | Emergency (ER) | payer BC, SELFPAY ==
--- NOTE | ~2022-02-15 | CT_ITS ---
EXAMINATION: CT abdomen pelvis wo con DATE: 02/15/2022 15:33 INDICATION: diarrhea, on Tx for diverticulitis, lower abdomen and pelvis pain TECHNIQUE: Computed tomography (CT) of the abdomen and pelvis was performed without intravenous contr ast. Automated exposure control and iterative reconstruction technique were employed. The dose-length product was 297.67 mGy-cm. COMPARISON: None. FINDINGS: Lower thorax: Left lower lung scar/atelectasis. Minimal bilateral dependent atelectasis. Moderate hia majo hernia. Liver: Normal. Biliary/Gallbladder: Gallbladder is absent. No bile duct dilation. Pancreas: No mass or duct dilation. Spleen: Normal. Adrenals:No mass. Kidneys: No mass, stone, or hydronephrosis. GI tract: No small or large bowel dilation. Considerably increased pericolonic inflammatory stranding affecting the descending colon and lateral conal fascia. New wall edema and inflammatory stranding a ffecting the cecum and ascending colon. Normal appendix. Mesentery/Peritoneum: No ascites, mass, or free air. Retroperitoneum: No mass. Pelvis: Uterine fibroids. Normal urinary bladder. Trace free pelvic fluid. Soft Tissues: Soft tissues and body wall unremarkable. Bones: No acute osseous finding. IMPRESSION: 1. Considerable interval worsening diverticulitis at the descending colon. No evidence of microperfor ation. Abscess cannot be excluded without the use of intravenous contrast. 2. Recurrent colitis involving the cecum and ascending colon. Reviewed, dictated and finalized at location K. [facility] CMO IMPRESSION: 1. Considerable interval worsening diverticulitis at the descending colon. No e vidence of microperforation. Abscess cannot be excluded without the use of intr avenous contrast. 2. Recurrent colitis involving the cecum and ascending colon.
[2022-02-15 14:55] VITALS: BP 148/90; PULSE 105; RESP 18; TEMP 36.7; O2SAT 98
[2022-02-15 15:00] VITALS: BP 148/90; PULSE 98; RESP 18; TEMP 36.6; O2SAT 98
[2022-02-15 15:09] VITALS: BP 148/90; PULSE 105; RESP 18; TEMP 36.7; O2SAT 98
[2022-02-15] MEDS: PANTOPRAZOLE SODIUM IV 40 MG VIAL IV PUSH (15:44)
[2022-02-15] MEDS: SODIUM CHLORIDE 0.9% IV 500 ML 999 ML IV CONT (15:44)
[2022-02-15] MEDS: ONDANSETRON INJ 4 MG/2 ML VIAL IV PUSH ×2 (15:44→18:03)
[2022-02-15 15:59] LABS: Basophils Absolute Auto 0.12 K/mm3 (0.00-0.10); Basophils Percent Auto 0.7 % (0.0-1.0); Eosinophils Absolute Auto 0.21 K/mm3 (0.02-0.50); Eosinophils Percent Auto 1.2 % (1.0-6.0); Hematocrit 42.4 % (35.0-42.0); Hemoglobin 13.9 g/dL (11.7-13.8); Immature Granulocyte Absolute 0.11 K/mm3 (0.00-0.00); Immature Granulocyte Percent A 0.6 % (0.0-0.0); Lymphocytes Absolute Auto 1.48 K/mm3 (1.10-4.50); Lymphocytes Percent Auto 8.3 % (18.0-42.0); Mean Corpuscular HGB Conc 32.8 g/dL (32.0-36.0); Mean Corpuscular Hemoglobin 30.5 pg (27.0-31.0); Mean Platelet Volume 10.6 fl (9.2-11.8); Monocytes Absolute Auto 0.99 K/mm3 (0.10-0.90); Monocytes Percent Auto 5.6 % (2.0-11.0); Neutrophils Absolute Auto 14.9 K/mm3 (1.7-7.2); Neutrophils Percent Auto 83.6 % (50.0-70.0); Platelet Count Result 383 K/mm3 (150-420); Red Blood Count 4.56 M/mm3 (4.20-5.40); Red Cell Distribution Width 14.8 % (11.6-14.4); White Blood Count 17.8 K/mm3 (4.8-10.8)
[2022-02-15 16:01] LABS: Add Urine Microscopic? YES; Appearance Urine Clear (Clear); Bilirubin Urine Negative (Negative); Blood Urine Negative (Negative); Color Urine Yellow (Yellow); Glucose Urine UA Negative (Negative); Ketones Urine Negative (Negative); Leukocyte Esterase Ur Trace LEU/UL (Negative); Nitrate Urine Negative (Negative); Protein Urine Negative (Negative); Specific Grav Ur >= 1.030 (1.010-1.020); Urobilinogen Urine 0.2 mg/dL (0.2-1.0)
[2022-02-15 16:08] LABS: Squamous Epithelial Cell Urine Few /hpf (Few)
[2022-02-15 16:09] LABS: Amorphous Sediment Urine Few
[2022-02-15 16:13] LABS: Alanine Aminotransferase 29 U/L (14-59); Albumin Level 3.3 g/dL (3.4-5.0); Alkaline Phosphatase 58 U/L (46-116); Anion Gap 10 mmol/L (8-16); Aspartate Amino Transferase 18 U/L (15-37); Bilirubin,Total 0.6 mg/dL (0.00-1.00); Blood Urea Nitrogen 24 mg/dL (7-18); Calcium 8.7 mg/dL (8.5-10.1); Carbon Dioxide 25 mmol/L (21-32); Chloride 105 mmol/L (98-108); Estimated CRCL calculation 34 ml/min; Estimated Glomerular Filt Rate 51; Glucose 105 mg/dL (70-99); Lipase 107 U/L (73-393); Osmolality Calculated 294 mOsm/kg (285-295); Sodium 140 mmol/L (136-145); Total Protein 6.8 g/dL (6.4-8.2)
[2022-02-15 16:16] LABS: Lactic Acid Reflex 1.2 mmol/L (0.4-2.0)
[2022-02-15 16:20] VITALS: BP 138/70; PULSE 65; RESP 16; O2SAT 99
[2022-02-15 17:40] VITALS: BP 149/80; PULSE 89; RESP 18; TEMP 36.7; O2SAT 99
[2022-02-15] MEDS: metroNIDAZOLE 250 MG TABLET 500 MG PO (18:02)
[2022-02-15] MEDS: MORPHINE SULFATE (*CRX) 2 MG/ML INJ IV PUSH (18:06)
[2022-02-15] MEDS: AMPICILLIN SULB 3 GM/NS 100 ML 3 GM/100 ML VIAL IVPB (18:11)
[2022-02-15 18:23] VITALS: BP 129/70; PULSE 67; RESP 16; O2SAT 99
--- NOTE | 2022-02-15 18:27 | ED.ABDPAIN ---
HPI - Abdominal Pain General Chief Complaint: Abdominal Pain Stated Complaint: diarrhea,abd pain Time Seen by Provider: 02/15/22 14:59 Source: patient, family and RN notes reviewed Mode of arrival: ambulatory Limitations: no limitations History of Present Illness MD elicited complaint: abdominal pain (worsening, with mild persistent bloodless diarrhea and no fever.) Pertinent past history: diverticulitis Onset (ago): day(s) (1) Pain Consistency: constant and colicky Location: periumbilical and suprapubic Severity: moderate Pain scale (0-10): 5 Quality: cramping, aching and dull Exacerbating factors: nothing Relieving factors: nothing Associated symptoms: nausea, diarrhea and chills Related Data Home Medications Medication Instructions Recorded Confirmed atorvastatin 40 mg tablet 40 mg PO DAILY 06/04/21 02/15/22 carvedilol 25 mg tablet 25 mg PO DAILY 06/04/21 02/15/22 montelukast 10 mg tablet 10 mg PO DAILY 06/04/21 02/15/22 valsartan 160 mg tablet 160 mg PO DAILY 06/04/21 02/15/22 ciprofloxacin HCl 500 mg tablet 500 mg PO BID 02/15/22 02/15/22 metronidazole 500 mg tablet 500 mg PO BID 02/15/22 02/15/22 Allergies Allergy/AdvReac Type Severity Reaction Status Date / Time No Known Allergies Allergy Verified 02/15/22 15:07 Review of Systems Review of Systems: All systems reviewed & are unremarkable except as noted in HPI and below Constitutional: Constitutional: Reports no additional constitutional complaints Eyes: Eyes: Reports no additional eye complaints ENT: Reports system reviewed and no additional complaints, except as documented Cardiovascular: Cardiovascular: Reports no additional cardiovascular complaints Respiratory: Respiratory: Reports no additional respiratory complaints Gastrointestinal: Gastrointestinal: Reports abdominal pain and Reports diarrhea Genitourinary: Genitourinary: Reports no additional female genitourinary complaints Musculoskeletal: Musculoskeletal: Reports no additional musculoskeletal complaints Integumentary/Breasts: Skin/Breast: Reports system reviewed and no additional complaints, except as docu Neurologic: Reports system reviewed and no additional complaints, except as documented Psychiatric: Psychiatric: Reports no additional psychiatric complaints Endocrine: Endocrine: Reports no additional endocrine complaints Hematologic/Lymphatic: Hematologic/Lymphatic: Reports no additional hematologic/lymphatic complaints Allergic/Immunologic: Allergic/Immunologic: Reports no additional allergic/immunologic complaints PMFSH Past Medical History Medical History Diverticulitis Social History Social History Smoking status: Never smoker Alcohol intake: current Drinks per week: 5 Substance use type: does not use Spiritual care concerns: No Exam Const: General: no acute distress and well nourished Nutritional Appearance: well nourished Orientation/consciousness: patient oriented x3 Limitations: no limitations HENMT: Head: normal to inspection Ears: external ears normal, TM's normal bilaterally and EAC's normal Face/Nose/Sinus: Normal external nose present, Normal nares present, normal facial exam and sinuses nontender Face and sinus: normal facial exam and sinuses nontender Mouth: Yes Normal oral and palatal mucosa present and Yes moist mucous membranes Teeth and gingiva: dentition normal Throat: posterior oropharynx normal Eyes: Conjunctivae: conjunctivae normal Pupils: Equal, round and reactive pupils present EOM: EOMs intact bilaterally Neck: Neck: normal visual inspection, no lymphadenopathy and no meningeal signs Chest: Chest palpation & inspection: normal inspection of the chest Resp: Effort & Inspection: normal respiratory effort Auscultation: clear to auscultation bilaterally Cardio: Rate: regular rate Rhythm: regular rhythm GI: G
== END 2022-02-15 18:56 | disposition left against medical advice (07) ==
PROVIDERS: Emergency Provider Emergency Medicine; PCP Internal Medicine
DX: K57.92 Diverticulitis of intestine, part unspecified, without perforation or abscess without bleeding (principal)
CPT/HCPCS: 36415; 74176; 80053; 81001; 83605; 83690; 85025; 96361; 96365; 96375; 96376; 99284; A9270; C9113; J0295; J2270; J2405; J7040

== ENCOUNTER 2022-03-12 11:13 | Outpatient (CLI) | payer BC, SELFPAY ==
[2022-03-12 11:46] LABS: Basophils Absolute Auto 0.07 K/mm3 (0.00-0.10); Basophils Percent Auto 0.5 % (0.0-1.0); Eosinophils Percent Auto 0.7 % (1.0-6.0); Hematocrit 41.1 % (35.0-42.0); Immature Granulocyte Absolute 0.08 K/mm3 (0.00-0.00); Immature Granulocyte Percent A 0.5 % (0.0-0.0); Lymphocytes Absolute Auto 1.72 K/mm3 (1.10-4.50); Lymphocytes Percent Auto 11.5 % (18.0-42.0); Mean Corpuscular HGB Conc 31.6 g/dL (32.0-36.0); Mean Corpuscular Hemoglobin 28.8 pg (27.0-31.0); Mean Corpuscular Volume 91.1 fL (78.0-102.0); Mean Platelet Volume 10.1 fl (9.2-11.8); Monocytes Absolute Auto 0.98 K/mm3 (0.10-0.90); Monocytes Percent Auto 6.6 % (2.0-11.0); Neutrophils Percent Auto 80.2 % (50.0-70.0); Platelet Count Result 478 K/mm3 (150-420); Red Blood Count 4.51 M/mm3 (4.20-5.40); Red Cell Distribution Width 14.2 % (11.6-14.4)
[2022-03-12 12:08] LABS: Alanine Aminotransferase 21 U/L (14-59); Albumin Level 3.5 g/dL (3.4-5.0); Alkaline Phosphatase 83 U/L (46-116); Amylase 80 U/L (25-115); Anion Gap 11 mmol/L (8-16); Aspartate Amino Transferase 16 U/L (15-37); Bilirubin,Total 0.4 mg/dL (0.00-1.00); Blood Urea Nitrogen 21 mg/dL (7-18); Calcium 9.2 mg/dL (8.5-10.1); Carbon Dioxide 25 mmol/L (21-32); Chloride 102 mmol/L (98-108); Estimated Glomerular Filt Rate 45; Glucose 113 mg/dL (70-99); Lipase 57 U/L (16-77); Osmolality Calculated 290 mOsm/kg (285-295); Potassium 4.5 mmol/L (3.5-5.1); Sodium 138 mmol/L (136-145); Total Protein 7.4 g/dL (6.4-8.2)
[2022-03-12 18:32] LABS: Appearance Urine Clear (Clear); Bilirubin Urine 2+ (Negative); Blood Urine Negative (Negative); Glucose Urine UA Negative (Negative); Ketones Urine Trace (Negative); Leukocyte Esterase Ur Negative LEU/UL (Negative); Nitrate Urine Negative (Negative); Protein Urine 1+ (Negative); Specific Grav Ur >= 1.030 (1.010-1.020); Urobilinogen Urine 0.2 mg/dL (0.2-1.0)
[2022-03-12 18:50] LABS: Add Urine Microscopic? YES; Bacteria Urine 1+ /hpf; Color Urine Dark Yellow (Yellow); RBC Urine 0-2 /hpf (0-2); Squamous Epithelial Cell Urine Few /hpf (Few)
[2022-03-12 18:51] LABS: Mucus Urine Few /lpf
== END 2022-03-12 11:14 | disposition home or self-care (01) ==
LOC: CHSLAB 11:15
PROVIDERS: PCP Family Medicine; Visit Provider Family Medicine
DX: A04.72 Enterocolitis due to Clostridium difficile, not specified as recurrent (principal)
CPT/HCPCS: 36415; 80053; 81001; 82150; 83690; 85025; 87324

== ENCOUNTER 2022-03-23 10:27 | Outpatient (CLI) | payer BC, SELFPAY ==
[2022-03-23 11:12] LABS: Anion Gap 8 mmol/L (8-16); Blood Urea Nitrogen 18 mg/dL (7-18); Carbon Dioxide 29 mmol/L (21-32); Chloride 101 mmol/L (98-108); Estimated Glomerular Filt Rate 57; Glucose 104 mg/dL (70-99); Osmolality Calculated 287 mOsm/kg (285-295); Potassium 4.3 mmol/L (3.5-5.1); Sodium 138 mmol/L (136-145)
== END 2022-03-23 10:28 | disposition home or self-care (01) ==
PROVIDERS: PCP Internal Medicine; Visit Provider Internal Medicine
DX: E86.0 Dehydration (principal)
CPT/HCPCS: 36415; 80048

== ENCOUNTER 2022-03-30 08:56 | Outpatient (CLI) | payer BC, SELFPAY ==
--- NOTE | ~2022-03-30 | CT_ITS ---
EXAMINATION: CT abdomen pelvis w con DATE: 03/30/2022 09:44 INDICATION: Follow-up of sigmoid colon abscess TECHNIQUE: Computed tomography (CT) of the abdomen and pelvis was performed with 100 CC Omnipaque 350 intravenous contrast. Automated exposure control and iterative reconstruction technique were employe d. Exam dose: 192.37 mGy-cm total exam DLP. COMPARISON: 02/2022 CT abdomen pelvis 02/20/2017 CT abdomen pelvis right upper quadrant ultrasound FINDINGS: Stable 3 mm peripheral middle lobe opacity, unchanged since 02/20/2017. The lung bases are c lear of infiltrate or consolidation. Normal heart size. Small pericardial effusion. Small sliding hiatal hernia. Again noted is a hyperenhancing area in the right hepatic lobe, previously suggested portal vein aneu rysm or pseudoaneurysm. No hepatic space-occupying mass lesion is detected.. There is hepatic steatos is. Status post cholecystectomy. No bile duct or pancreatic duct dilatation. No pancreatic mass lesion or calcification. Normal splenic size. Normal morphology of the adrenal glands. No renal mass lesion or urinary tract calculus or hydroureteronephrosis. Probable calcified uterine f ibroids. The urinary bladder is relatively evacuated, unremarkable. Normal appendix. There is enhancement of a somewhat thickened wall of a distal descending colon probable approximately 1.2 x 1.7 cm intramural diverticular abscess, with minimal adjacent fat stranding. Minimal diverticulosis of the colon. No bowel obstruction is evident. There is a prominent amount of fecal material in the colon. No intraperitoneal free air is detected. Moderately severe degenerative disc disease at L2-3 and jannie re degenerative disc disease at L3-4 and L4-5. Normal caliber of the abdominal aorta. No intraperitoneal or retroperitoneal or pelvic mass lesion or adenopathy or ascites. IMPRESSION: Approximately 1.2 x 1.7 cm peripherally enhancing intramural diverticular abscess of dis majo descending colon, with minimal adjacent fat stranding Mild colonic diverticulosis Normal appendix Calcified uterine fibroids Status post cholecystectomy Hepatic steatosis Portal vein aneurysm or pseudoaneurysm Small sliding hiatal hernia Small pericardial effusion Reviewed, dictated and finalized at Location A. Reviewed, dictated and finalized at location B. 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
== END 2022-03-30 08:57 | disposition home or self-care (01) ==
LOC: CHSIMG 08:58
PROVIDERS: PCP Internal Medicine; Visit Provider Internal Medicine
DX: K63.0 Abscess of intestine (principal); K57.90 Diverticulosis of intestine, part unspecified, without perforation or abscess without bleeding; D25.9 Leiomyoma of uterus, unspecified; Z90.49 Acquired absence of other specified parts of digestive tract; K76.0 Fatty (change of) liver, not elsewhere classified; I72.8 Aneurysm of other specified arteries; K44.9 Diaphragmatic hernia without obstruction or gangrene; I31.39 Other pericardial effusion (noninflammatory)
CPT/HCPCS: 74177; Q9967

== ENCOUNTER 2022-04-11 07:47 | Outpatient (CLI) | payer BC, SELFPAY ==
[2022-04-11 08:22] LABS: Basophils Absolute Auto 0.06 K/mm3 (0.00-0.10); Eosinophils Absolute Auto 0.23 K/mm3 (0.02-0.50); Eosinophils Percent Auto 3.7 % (1.0-6.0); Hematocrit 36.7 % (35.0-42.0); Hemoglobin 11.8 g/dL (11.7-13.8); Immature Granulocyte Absolute 0.04 K/mm3 (0.00-0.00); Immature Granulocyte Percent A 0.6 % (0.0-0.0); Lymphocytes Absolute Auto 2.09 K/mm3 (1.10-4.50); Lymphocytes Percent Auto 33.2 % (18.0-42.0); Mean Corpuscular HGB Conc 32.2 g/dL (32.0-36.0); Mean Corpuscular Hemoglobin 28.8 pg (27.0-31.0); Mean Corpuscular Volume 89.5 fL (78.0-102.0); Mean Platelet Volume 9.9 fl (9.2-11.8); Monocytes Absolute Auto 0.48 K/mm3 (0.10-0.90); Monocytes Percent Auto 7.6 % (2.0-11.0); Neutrophils Absolute Auto 3.4 K/mm3 (1.7-7.2); Neutrophils Percent Auto 53.9 % (50.0-70.0); Platelet Count Result 301 K/mm3 (150-420); Red Cell Distribution Width 14.7 % (11.6-14.4); White Blood Count 6.3 K/mm3 (4.8-10.8)
[2022-04-11 08:26] LABS: Add Urine Microscopic? NO; Appearance Urine Clear (Clear); Bilirubin Urine Negative (Negative); Blood Urine Negative (Negative); Color Urine Light Yellow (Yellow); Glucose Urine UA Negative (Negative); Ketones Urine Negative (Negative); Leukocyte Esterase Ur Negative (Negative); Nitrate Urine Negative (Negative); Protein Urine Negative (Negative); Urobilinogen Urine 0.2 mg/dL (0.2-1.0); pH Urine 5.5 (5.0-8.0)
[2022-04-11 08:36] LABS: Alanine Aminotransferase 42 U/L (14-59); Albumin Level 3.6 g/dL (3.4-5.0); Alkaline Phosphatase 67 U/L (46-116); Anion Gap 10 mmol/L (8-16); Aspartate Amino Transferase 28 U/L (15-37); Bilirubin,Total 0.3 mg/dL (0.00-1.00); Blood Urea Nitrogen 26 mg/dL (7-18); Calcium 8.9 mg/dL (8.5-10.1); Carbon Dioxide 29 mmol/L (21-32); Chloride 101 mmol/L (98-108); Cholesterol 163 mg/dL (0-200); Creatine Kinase 156 U/L (26-192); Estimated Glomerular Filt Rate 40; Glucose 100 mg/dL (70-99); HDL Direct 49 mg/dL (40-60); LDL Cholesterol Calculated 79 mg/dL (<130); Osmolality Calculated 294 mOsm/kg (285-295); Potassium 4.4 mmol/L (3.5-5.1); Sodium 140 mmol/L (136-145); Triglycerides 176 mg/dL (0-150)
[2022-04-14 19:21] LABS: Parathyroid Intact 73 pg/mL (14-64)
== END 2022-04-11 07:48 | disposition home or self-care (01) ==
PROVIDERS: PCP Internal Medicine; Visit Provider Internal Medicine
DX: E21.0 Primary hyperparathyroidism (principal); I10 Essential (primary) hypertension; R73.01 Impaired fasting glucose; E78.2 Mixed hyperlipidemia
CPT/HCPCS: 36415; 80053; 80061; 81003; 82550; 83036; 83970; 85025; 87324

== ENCOUNTER 2022-10-24 08:57 | Outpatient (CLI) | payer BC, SELFPAY ==
[2022-10-24 09:20] LABS: Basophils Absolute Auto 0.05 K/mm3 (0.00-0.10); Basophils Percent Auto 0.8 % (0.0-1.0); Eosinophils Absolute Auto 0.16 K/mm3 (0.02-0.50); Eosinophils Percent Auto 2.4 % (1.0-6.0); Hematocrit 38.5 % (35.0-42.0); Hemoglobin 12.9 g/dL (11.7-13.8); Immature Granulocyte Absolute 0.03 K/mm3 (0.00-0.00); Immature Granulocyte Percent A 0.5 % (0.0-0.0); Lymphocytes Absolute Auto 1.65 K/mm3 (1.10-4.50); Lymphocytes Percent Auto 24.9 % (18.0-42.0); Mean Corpuscular HGB Conc 33.5 g/dL (32.0-36.0); Mean Corpuscular Hemoglobin 32.3 pg (27.0-31.0); Mean Corpuscular Volume 96.3 fL (78.0-102.0); Mean Platelet Volume 9.7 fl (9.2-11.8); Monocytes Absolute Auto 0.51 K/mm3 (0.10-0.90); Monocytes Percent Auto 7.7 % (2.0-11.0); Neutrophils Absolute Auto 4.2 K/mm3 (1.7-7.2); Neutrophils Percent Auto 63.7 % (50.0-70.0); Platelet Count Result 260 K/mm3 (150-420); Red Cell Distribution Width 13.7 % (11.6-14.4); White Blood Count 6.6 K/mm3 (4.8-10.8)
[2022-10-24 09:29] LABS: Hemoglobin A1C 5.3 % (<5.7)
[2022-10-24 09:48] LABS: Appearance Urine Clear (Clear); Bilirubin Urine Negative (Negative); Blood Urine Trace-Intact (Negative); Color Urine Light Yellow (Yellow); Glucose Urine UA Negative (Negative); Ketones Urine Negative (Negative); Leukocyte Esterase Ur 1+ LEU/UL (Negative); Nitrate Urine Negative (Negative); Protein Urine Negative (Negative); Urobilinogen Urine 0.2 mg/dL (0.2-1.0); pH Urine 5.5 (5.0-8.0)
[2022-10-24 09:54] LABS: Alanine Aminotransferase 29 U/L (14-59); Albumin Level 3.8 g/dL (3.4-5.0); Alkaline Phosphatase 67 U/L (46-116); Anion Gap 10 mmol/L (8-16); Aspartate Amino Transferase 25 U/L (15-37); Bilirubin,Total 0.6 mg/dL (0.00-1.00); Blood Urea Nitrogen 29 mg/dL (7-18); Calcium 9.5 mg/dL (8.5-10.1); Carbon Dioxide 27 mmol/L (21-32); Chloride 104 mmol/L (98-108); Cholesterol 165 mg/dL (0-200); Creatine Kinase 134 U/L (26-192); Estimated Glomerular Filt Rate 48; Free T4 Free Thyroxine 1.01 ng/dL (0.76-1.46); Glucose 109 mg/dL (70-99); HDL Direct 66 mg/dL (40-60); LDL Cholesterol Calculated 83 mg/dL (<130); Osmolality Calculated 298 mOsm/kg (285-295); Potassium 4.6 mmol/L (3.5-5.1); Sodium 141 mmol/L (136-145); Thyroid Stimulating Hormone 2.87 uIU/mL (0.36-3.74); Total Protein 7.1 g/dL (6.4-8.2); Triglycerides 81 mg/dL (0-150)
[2022-10-24 09:58] LABS: Add Urine Microscopic? YES; RBC Urine 0-2 /hpf (0-2)
[2022-10-24 09:59] LABS: Bacteria Urine Trace /hpf; Squamous Epithelial Cell Urine Few /hpf (Few)
[2022-10-28 22:48] LABS: Vitamin D 25 Hydroxy 84 ng/mL (30-100)
== END 2022-10-24 08:58 | disposition home or self-care (01) ==
LOC: CHSLAB 08:59
PROVIDERS: PCP Internal Medicine; Visit Provider Internal Medicine
DX: R73.01 Impaired fasting glucose (principal); E78.2 Mixed hyperlipidemia; R31.21 Asymptomatic microscopic hematuria; R82.90 Unspecified abnormal findings in urine
CPT/HCPCS: 36415; 80053; 80061; 81001; 82306; 82550; 83036; 84439; 84443; 85025; 87077; 87086; 87088

== ENCOUNTER 2023-04-30 07:31 | Outpatient (CLI) | payer MEDICARE, SELFPAY ==
[2023-04-30 07:53] LABS: Basophils Absolute Auto 0.06 K/mm3 (0.00-0.10); Basophils Percent Auto 0.9 % (0.0-1.0); Eosinophils Absolute Auto 0.24 K/mm3 (0.02-0.50); Eosinophils Percent Auto 3.7 % (1.0-6.0); Hematocrit 39.1 % (35.0-42.0); Hemoglobin 12.9 g/dL (11.7-13.8); Immature Granulocyte Absolute 0.03 K/mm3 (0.00-0.00); Immature Granulocyte Percent A 0.5 % (0.0-0.0); Lymphocytes Absolute Auto 2.34 K/mm3 (1.10-4.50); Lymphocytes Percent Auto 36.5 % (18.0-42.0); Mean Corpuscular Hemoglobin 31.4 pg (27.0-31.0); Mean Corpuscular Volume 95.1 fL (78.0-102.0); Mean Platelet Volume 9.6 fl (9.2-11.8); Monocytes Absolute Auto 0.43 K/mm3 (0.10-0.90); Monocytes Percent Auto 6.7 % (2.0-11.0); Neutrophils Absolute Auto 3.3 K/mm3 (1.7-7.2); Neutrophils Percent Auto 51.7 % (50.0-70.0); Platelet Count Result 264 K/mm3 (150-420); Red Blood Count 4.11 M/mm3 (4.20-5.40); Red Cell Distribution Width 13.7 % (11.6-14.4); White Blood Count 6.4 K/mm3 (4.8-10.8)
[2023-04-30 07:57] LABS: Appearance Urine Clear (Clear); Bilirubin Urine Negative (Negative); Blood Urine Negative (Negative); Color Urine Light Yellow (Yellow); Glucose Urine UA Negative (Negative); Ketones Urine Negative (Negative); Leukocyte Esterase Ur 2+ LEU/UL (Negative); Nitrate Urine Negative (Negative); Protein Urine Negative (Negative); Urobilinogen Urine 0.2 mg/dL (0.2-1.0)
[2023-04-30 08:06] LABS: Hemoglobin A1C 5.6 % (<5.7)
[2023-04-30 08:38] LABS: Add Urine Microscopic? YES; Bacteria Urine 1+ /hpf; RBC Urine None seen /hpf (0-2); Renal Epithelial Cells Urine Few /hpf; Squamous Epithelial Cell Urine Few /hpf (Few)
[2023-04-30 08:50] LABS: Alanine Aminotransferase 41 U/L (14-59); Albumin Level 3.8 g/dL (3.4-5.0); Alkaline Phosphatase 60 U/L (46-116); Anion Gap 9 mmol/L (8-16); Aspartate Amino Transferase 26 U/L (15-37); Bilirubin,Total 0.6 mg/dL (0.00-1.00); Blood Urea Nitrogen 28 mg/dL (7-18); Calcium 9.1 mg/dL (8.5-10.1); Carbon Dioxide 28 mmol/L (21-32); Chloride 104 mmol/L (98-108); Cholesterol 190 mg/dL (0-200); Creatine Kinase 133 U/L (26-192); Estimated Glomerular Filt Rate 50; Free T3 2.36 pg/mL (2.18-3.98); Free T4 Free Thyroxine 0.92 ng/dL (0.76-1.46); Glucose 96 mg/dL (70-99); HDL Direct 75 mg/dL (40-60); LDL Cholesterol Calculated 100 mg/dL (<130); Osmolality Calculated 297 mOsm/kg (285-295); Potassium 4.7 mmol/L (3.5-5.1); Sodium 141 mmol/L (136-145); Thyroid Stimulating Hormone 3.02 uIU/mL (0.36-3.74); Triglycerides 73 mg/dL (0-150)
== END 2023-04-30 07:32 | disposition home or self-care (01) ==
LOC: CHSLAB 07:35
PROVIDERS: PCP Internal Medicine; Visit Provider Internal Medicine
DX: I10 Essential (primary) hypertension (principal); R73.01 Impaired fasting glucose; E21.0 Primary hyperparathyroidism; N18.2 Chronic kidney disease, stage 2 (mild); R82.90 Unspecified abnormal findings in urine
CPT/HCPCS: 36415; 80053; 80061; 81001; 82550; 83036; 84439; 84443; 84481; 85025; 87077; 87086; 87088

== ENCOUNTER 2023-05-14 13:13 | Outpatient (CLI) | payer MEDICARE, SELFPAY ==
--- NOTE | ~2023-05-14 | DEXA_ITS ---
Bone Density Report Name: PARVEEN ROBISON Age: 67 Sex: Female Ethnicity: White Date of : 1955 Indication: postmenopausal; screening for osteoporosis; height loss; asthma or emphysema; Referring Provider: Gwendolyn Avina Study: Bone densitometry was performed. Exam Date: May 14, 2023 Accession number: [id number] Bone Density: Region BMD T-score Z-score Classification AP Spine(L2, L3, L4) 1.430 3.2 5.3 Normal Femoral Neck (Left) 0.645 -1.8 -0.1 Osteopenia Total Hip (Left) 0.860 -0.7 0.8 Normal Femoral Neck (Right) 0.679 -1.5 0.2 Osteopenia Total Hip (Right) 0.855 -0.7 0.7 Normal Femoral Neck Mean 0.662 -1.7 0.0 Osteopenia Total Hip Mean 0.857 -0.7 0.7 Normal World Health Organization criteria for BMD impression classify patients as: Normal (T-score at or above -1.0), Osteopenia (T-score between -1.0 and -2.5), or Osteoporosis (T-score at or below -2.5). 10-year Fracture Risk(1): Major Osteoporotic Fracture 10% Hip Fracture 1.7% Reported Risk Factors: [place] (), Neck BMD=0.645, BMI=23.4 (1) FRAX(R) Version 3.08. Fracture probability calculated for an untreated patient. Fracture probability may be lower if the patient has received treatment. Clinical Information Provided by Patient: Has used the following medications: Vitamin D Has the following medical conditions: Asthma or Emphysema Patient maximum height was 61 Menopause Age: 54 No regular weight bearing exercise Drinks caffeinated beverages Onset of menses at age 11 Number of children 3 Impression: The patient has low bone mass, based on the Left Femoral Neck T-score. Discussion: BONE DENSITY IS LOW AT ONE OR MORE SKELETAL SITES. This patient's lowest T-score is low at one or more skeletal sites. It meets the World Health Organization's (WHO) criteria for ?low bone mass? (T-score between -1.0 and -2.5). The patient's 10-year risk of fracture as calculated by FRAX is less than the threshold where pharmacological therapy is recommended by the National Osteoporosis Foundation (NOF). However, all treatment decisions require clinical judgment and consideration of individual patient factors, including patient preferences, comorbidities, previous drug use, risk factors not captured in the FRAX model (e.g., frailty, falls, vitamin D deficiency, increased bone turnover, interval significant decline in bone density) and possible under or overestimation of fracture risk by FRAX. The patient should follow a healthful lifestyle (good nutrition with adequate calcium and vitamin D, and appropriate weight-bearing exercise). Follow-Up: Consider repeating this study in 2 to 3 years to reassess this patient's status, or sooner if there is some new clinical indication. Reported by: Dr. Alex Garcia on
== END 2023-05-14 13:14 | disposition home or self-care (01) ==
LOC: CHSIMG 13:15
PROVIDERS: PCP Internal Medicine; Visit Provider Internal Medicine
DX: Z78.0 Asymptomatic menopausal state (principal); M85.89 Other specified disorders of bone density and structure, multiple sites
CPT/HCPCS: 77080

== ENCOUNTER 2023-11-01 10:50 | Outpatient (CLI) | payer MEDICARE, SELFPAY ==
[2023-11-01 11:07] LABS: Hematocrit 39.7 % (35.0-42.0); Hemoglobin 13.4 g/dL (11.7-13.8); Mean Corpuscular HGB Conc 33.8 g/dL (32-36); Mean Corpuscular Hemoglobin 32.1 pg (27.0-31.0); Mean Corpuscular Volume 95.2 fL (78.0-102.0); Mean Platelet Volume 9.8 fl (9.2-11.8); Platelet Count Result 263 K/mm3 (150-420); Red Blood Count 4.17 M/mm3 (4.20-5.40); Red Cell Distribution Width 13.8 % (11.6-14.4)
[2023-11-01 11:08] LABS: Add Urine Microscopic? YES; Appearance Urine Clear (Clear); Bilirubin Urine Negative (Negative); Blood Urine Trace-intact (Negative); Color Urine Light Yellow (Yellow); Glucose Urine UA Negative (Negative); Ketones Urine Negative (Negative); Leukocyte Esterase Ur 1+ LEU/UL (Negative); Nitrate Urine Negative (Negative); Protein Urine Negative (Negative); Specific Grav Ur 1.025 (1.010-1.020); Urobilinogen Urine 0.2 mg/dL (0.2-1.0)
[2023-11-01 11:16] LABS: RBC Urine None seen /hpf (0-2)
[2023-11-01 11:17] LABS: Bacteria Urine Trace /hpf; Squamous Epithelial Cell Urine Few /hpf (Few); WBC Urine 0-3 /hpf (0-3)
[2023-11-01 12:24] LABS: Alanine Aminotransferase 43 U/L (14-59); Albumin Level 4.2 g/dL (3.4-5.0); Alkaline Phosphatase 72 U/L (46-116); Anion Gap 8 mmol/L (4-12); Aspartate Amino Transferase 31 U/L (15-37); Bilirubin,Total 0.8 mg/dL (0.00-1.00); Blood Urea Nitrogen 30 mg/dL (7-18); Calcium 9.8 mg/dL (8.5-10.1); Carbon Dioxide 29 mmol/L (21-32); Chloride 102 mmol/L (98-108); Cholesterol 183 mg/dL (0-200); Creatine Kinase 170 U/L (26-192); Estimated Glomerular Filt Rate 55; Glucose 100 mg/dL (70-99); HDL Direct 73 mg/dL (40-60); LDL Cholesterol Calculated 97 mg/dL (<130); Osmolality Calculated 294 mOsm/kg (285-295); Potassium 4.7 mmol/L (3.5-5.1); Sodium 139 mmol/L (136-145); Total Protein 7.3 g/dL (6.4-8.2); Triglycerides 63 mg/dL (0-150)
[2023-11-01 17:41] LABS: Hemoglobin A1C 5.1 % (<5.7)
[2023-11-03 04:07] LABS: Parathyroid Intact 36 pg/mL (16-77)
== END 2023-11-01 10:51 | disposition home or self-care (01) ==
LOC: CHSLAB 10:56
PROVIDERS: PCP Internal Medicine; Visit Provider Internal Medicine
DX: I10 Essential (primary) hypertension (principal); N18.2 Chronic kidney disease, stage 2 (mild); E78.2 Mixed hyperlipidemia; E21.0 Primary hyperparathyroidism; R73.01 Impaired fasting glucose; R31.29 Other microscopic hematuria
CPT/HCPCS: 36415; 80053; 80061; 81001; 82550; 83036; 83970; 85027; 87086; 87088

== ENCOUNTER 2024-04-20 09:29 | Outpatient (CLI) | payer MEDICARE, SELFPAY ==
--- OUTSIDE RECORDS SUMMARY | 2024-04-20 09:42 | XMS_ITS | Referral Summary ---
Author Organization [facility] Address [address] [place] [address] Care Team Providers Care Plate Maker Name Role Phone Gwendolyn Avina MD Primary Care Provider [phone] Crescencio Riojas MD Unavailable [phone] Allergies No known active allergies Medications montelukast (SINGULAIR) 10 mg tablet take 1 tablet by oral route every day in the evening [address] (PROTONIX) 40 mg EC tablet Take 1 tablet (40 mg total) by mouth 3 (three) times a week 7 Active carvediloL (COREG) 25 mg tablet Take 0.5 tablets (12.5 mg total) by mouth 2 (two) times a day 1 Active atorvastatin (LIPITOR) 40 mg tablet Take 1 tablet (40 mg total) by mouth daily 1 Active acetaminophen (TYLENOL) 325 mg tabletIndicatio ns:Fever,Pain Take 2 tablets (650 mg total) by mouth every 4 (four) hours as needed for pain, headaches or fever 30 tablet 2 Active Additional Information Patient not taking.Reported on 01/13/2024 valsartan (DIOVAN) 80 mg tablet Take 1 tablet (80 mg total) by mouth daily 4 Active Active Problems Problem Noted Date Diagnosed Date Diverticulitis of both large and small intestine with abscess 04/07/2022 Colitis 02/17/2022 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 difficile colitis Immunizations Name Administration Dates Next Due Pfizer SARS-CoV-2 Monovalent Vaccination (12+ Yrs) PURPLE 06/06/2020,05/09/2020 Social History Tobacco Use Types Packs/Day Years Used Date Smoking Tobacco: Never Smokeless Tobacco: Never Tobacco Cessation:Counseling Given: Not Answered Alcohol Use Standard Drinks/Week Comments Yes 0 (1 standard drink = 0.6 oz pur e alcohol) Social Connection and Isolat ion Panel [NHANES] Answer Date Recorded In a typical week, how many times do you talk on the phone with family, friends, or neighbors? More than three times a week 02/19/2022 How often do you get togethe r with friends or relatives? More than three times a week 02/19/2022 How often do you attend chur ch or presybeterian services? Never 02/19/2022 Do you belong to any clubs o r organizations such as hindu groups, unions, fraternal or athletic groups, or school groups? No 02/19/2022 How often do you attend meet ings of the clubs or organizations you belong to? Never 02/19/2022 Are you , , di vorced, , never , or living with a partner? 02/19/2022 AUDIT-C Answer Date Recorded Q1: How often do you have a drink containing alc ohol? 2-3 times a week 04/07/2022 Average Number of Drinks Not on file 023 Frequency of Binge Drinking Not on file 03/16 Overall Financial Resource Strain (CARDIA) Answe r Date Recorded How hard is it for you to pa y for the very basics like food, housing, medical care, and heating? Not hard at all 02/19/2022 Hunger Vital Sign Answer Date Recorded Within the past 12 months, y ou worried that your food would run out before you got the money to buy more. Never true 02/20/20 22 Within the past 12 months, t he food you bought just didn't last and you didn't have money to get more. Never true 02/19/2022 PRAPARE - Transportation Answer Date Re corded In the past 12 months, has l ack of transportation kept you from medical appointments or from getting medications? No 10/2021 In the past 12 months, has l ack of transportation kept you from meetings, work, or from getting things needed for daily living? No 02/19/2022 Housing Stability Vital Sign Answer Paul e Recorded In the last 12 months, was t here a time when you were not able to pay the mortgage or rent on time? No 02/19/2022 Number of Places Lived in the Last Year Not on f ile 02/19/2022 In the last 12 months, was t here a time when you did not have a steady place to sleep or slept in a usp (including now)? 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 on file Not on file Last Filed Vital Signs Vital Sign Reading Time Taken Comments Blood Pressure 130/80 01/13/2024 12:56 PM CDT Pulse 85 08/27/2022 9:03 AM CDT Temperature 37.3 C (99.2 F) 08/27/2022 9:03 AM CDT Respiratory Rate 18 02/20/2022 7:00 AM VERIFICATION MANAGER Oxygen Saturation 98% 04/07/2022 1:27 PM VERIFICATION MANAGER Inhaled Oxygen Concentration - - Weight 55.3 kg (122 lb) 01/13/2024 12:56 PM CDT Height 154.9 cm (5' 1 ) 01/13/2024 12:56 PM CDT Body Mass Index 23.05 01/13/2024 12:56 PM CDT Plan of Treatment Not on file Procedures Procedure Name Priority Date/Time Associated Diagnosis Comments SCREENING MAMMOGRAM BILATERAL W ALEJANDRO Schedule Routine, Read Routine (OP Routine) 01/13/2024 1:33 PM CDT Screening mammogram for breast cancer HEPATITIS PANEL, ACUTE Routine 02/19/2022 10:39 AM VERIFICATION MANAGER from Last 3 Months or Most Recently Relevant to Health Maintenance Results * Screening Mammogram Bilateral W Alejandro (01/13/2024 1:33 PM CDT) Anatomical Region Laterality Modality Breast Bilateral Mammography 01/13/2024 10:0 9 PM CDT Impressions 01/13/2024 10:09 PM CDT There is no mammographic evidence of malignancy. A 1 year screening mammogram is recommended. BI-RADS: 1 - Negative. The patient has been or will be contacted. The patient will be entered into a reminder system with a target due date of 1 year for her next mammogram. Electronically signed by: Reema Myrick M.D. Narrative 01/13/2024 10:09 PM CDT EXAMINATION: SCREENING MAMMOGRAM BILATERAL W ALEJANDRO ORDERING HEALTHCARE PROVIDER: CAITLYN ISABEL HISTORY: Routine screening mammography. COMPARISON: 01/04/2023, 12/29/2021, 12/11/2020, 12/11/2019 TECHNIQUE: CC and MLO views of the bilateral breasts were obtained with digital technique using breast tomosynthesis with C view. Computer aided detection was utilized. FINDINGS: DENSITY: There are scattered areas of fibroglandular density. BREASTS: There are no suspicious masses, suspicious calcifications, or other suspicious findings in either breast. There has been no suspicious interval change. Caitlyn Isabel MD IMG MAMMO PROCEDURES Final Result * Hepatitis panel, acute (02/19/2022 10:39 AM VERIFICATION MANAGER) Hep A IgM Nonreactive Nonreactive [facility] Comment: Interpretive Data: If Hep A IgM Ab is reported as Equivocal, a new sample should be drawn in two weeks for testing. Current interpretive data was last revised on 19. Hep B core IgM Nonreactive Nonreactive [facility] Comment: Interpretive Data If HepB Core IgM Ab is reported as Equivocal, a new sample should be drawn in two weeks for testing. Current interpretive data was last revised on 19. Hep C Ab Nonreactive Nonreactive [facility] Comment: Interpretive Data Nonreactive: Antibodies to HCV not detected. Does NOT exclude the possibility of recent exposure to HCV. Equivocal: Equivocal for HCV antibodies. Supplemental molecular testing will be automatically performed to determine infection status in accordance with current CDC screening recommendations. Reactive: Positive for HCV antibodies. This may represent current or past HCV infection. Supplemental molecular testing will be automatically performed to determine current infection status in accordance with current CDC screening recommendations. Interpretive data was last revised on 2019. HepBsAg Nonreactive Nonreactive [facility] Blood 02/19/2022 10:3 9 AM VERIFICATION MANAGER 02/19/2022 11:01 AM VERIFICATION MANAGER Enrrique Silvestre MD LAB MICROBIOLOGY - GENERA L ORDERABLES Final Result [facility] [address] [facility] Department [place] [address] from Last 3 Months or Most Recently Relevant to Health Maintenance Additional Health Concerns Infection Onset Date Last Indicated C. difficile 02/18/2022 02/18/2022 Insurance PerSay [place] PerSay [place] MEDICARE MEDICARE AETNA SENIOR [facility] Advance Directives For more information, please contact: [phone] * Full Code (Latest Code Status on File) Date Activated Date Inactivated Comments 02/18/2022 12:32 AM 02/20/2022 6:15 PM Care Teams Plate Maker Relationship Specialty Start Date End Date Gwendolyn Avina MD [address] [place] [address] PCP - General 06/08/16 Crescencio Riojas MD [id number] [place] [address] Surgeon Colon and Rectal Surgery 04/09/22
--- OUTSIDE RECORDS SUMMARY | 2024-04-20 09:42 | XMS_ITS | Clinical Summary ---
Author Organization [facility] Address [address] [place] [address] Care Team Providers Care Business Control Manager Name Role Phone Unavailable Primary Care Provider Unavailabl e Social History Tobacco Use Types Packs/Day Years Used Date Smoking Tobacco: Never Assessed Comments Unknown Sex and Gender Information Value Date Recorded Sex Assigned at Not on file Legal Sex Female 5:38 PM CDT Gender Identity Not on file Sexual Orientation Not on file Plan of Treatment Health Maintenance Due Date Last Done Comments Colorectal Cancer Screening Colonoscopy (10 Years) 1954 Hepatitis C 1972 DTaP, Tdap and Td Vaccines ( 1 - Tdap) 1973 Mammogram Screening 1994 Zoster Vaccines (1 of 2) 2004 Dexa Scan (General) 07/31/2019 Pneumococcal Vaccine: 65+ Ye ars (1 of 1 - PCV) 07/31/2019 COVID-19 Vaccine ( - 2023-2 5 season) 2023 Influenza Adult (#1) 2023 RSV Immunization or 60+ Years (1 - 1-dose 75+ series) 2029 Meningococcal B Vaccine Aged Out No l onger eligible based on patient's age to complete this topic Meningococcal Vaccine Aged Out No conner jyay eligible based on patient's age to complete this topic RSV Immunizations Under 20 Months Aged Out No longer eligible based on patient's age to complete this topic
--- OUTSIDE RECORDS SUMMARY | 2024-04-20 09:42 | XMS_ITS | Clinical Summary ---
Author Organization [facility] al Address [address] [place] [address] Care Team Providers Care Bus Girl Name Role Phone Gwendolyn Avina MD Primary Care Provider [phone] Crescencio Riojas MD Unavailable [phone] Allergies No known active allergies Medications montelukast [...] SARS-CoV-2 Monovalent Vaccination (12+ Yrs) PURPLE 06/06/2020,05/09/2020 Surgical History Surgery Date Site/Laterality Comments OTHER SURGICAL HISTORY x 3 - , , ENDOMETRIAL ABLATION Endometrial ablation TUBAL LIGATION Bilateral tubal ligation CHOLECYSTECTOMY Cholecystectomy Medical History Medical History Date Comments Hypertension Ulcerative colitis (HCC) Asthma Family History Medical History Relation Name Comments Brain cancer Cousin Diabetes Father Diabetes mellit us; /Family history of diabetes mellitus - (Added by TW Conv) Hypertension Father Hypertension; / Family history of hypertension - (Added by TW Conv) Other Maternal Grandmother Cancer, metastic to brain; Cause of : Cancer, metastic to brain Breast cancer Other Family history of Cancer, breast; RED 10/08/2015 - Maternal great aunt, distant cousin - cause of at age 40 Relation Name Status Comments Cousin Father Maternal Grandmother (Age 80) Other Social History Tobacco Use Types Packs/Day Years [...] 02/19/2022 How often do you attend chur [employer] or hindu services? Never 02/19/2022 Do you belong to any clubs o r organizations such as christianity groups, unions, fraternal or athletic groups, or [...] place to sleep or slept in a [place] (including now)? 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 file Obstetrics History Para Term AB IAB SAB Ectopic Multiple Livin g Live Births 3 3 3 0 0 3 Date Outcome GA Total Labor Labor/2nd/3rd Weight Sex Type Anes PTL Lashonda A1 A5 Name Clin Term Term Term Last Filed Vital Signs Vital Sign Reading Time Taken Comments Blood Pressure 130/80 01/13/2024 12:56 PM CDT Pulse 85 08/27/2022 9:03 AM CDT Temperature 37.3 C (99.2 F) 08/27/2022 9:03 AM CDT Respiratory Rate 18 02/20/2022 7:00 AM SOLAR THERMAL INSTALLER Oxygen Saturation 98% 04/07/2022 1:27 PM SOLAR THERMAL INSTALLER Inhaled Oxygen Concentration - - Weight 55.3 kg (122 lb) 01/13/2024 12:56 PM CDT Height 154.9 cm (5' 1 ) 01/13/2024 12:56 PM CDT Body Mass Index 23.05 01/13/2024 12:56 PM CDT Plan of Treatment Health Maintenance Due Date Last Done Comments Colon Cancer Screening-Colonoscopy 1954 Depression Screening 1954 Osteoporosis Screening-Bone Density Scan 1954 Hepatitis B Screening 1972 Fall Risk Assessment 02/20/2023 02/20/2022 DTaP/Tdap/Td Vaccine (2 - Td or Tdap) 10/05/2023 10/04/2013 Covid-19 Vaccine (3 - 2023-2 5 season) 2023 06/06/2020, 05/09/2020 Influenza Vaccine (#1) 2023 11/30/2019, 2014 Well Visit 65+ 01/05/2024 01/04/2023, 12/13, 12/11/2020, Additional history exists Breast Cancer Screening-Mammogram 01/12/2025 01/13/2024, 01/04/2023, 12/29/2021, Additional history exists Zoster Vaccine Completed 07/27/2018, 11/2018, 11/14/2014 Pneumococcal vaccine 65+ Completed 11/08/2019, 05/15 Hepatitis C Screening Completed 02/19/2022, 017 Procedures Procedure Name Priority Date/Time Associated Diagnosis Comments SCREENING MAMMOGRAM BILATERAL W ALEJANDRO Schedule Routine, Read Routine (OP Routine) 01/13/2024 1:33 PM CDT Screening mammogram for breast cancer HEPATITIS PANEL, ACUTE Routine 02/19/2022 10:39 AM SOLAR THERMAL INSTALLER from Last 3 Months or Most Recently [...] There has been no suspicious interval change. us Caitlyn Isabel MD IMG MAMMO PROCEDURES Final Result * Hepatitis panel, acute (02/19/2022 10:39 AM SOLAR THERMAL INSTALLER) Hep A IgM Nonreactive Nonreactive [facility] Comment: Interpretive Data: If Hep A IgM Ab is reported as Equivocal, a new sample should be drawn in two weeks for testing. Current interpretive data was last revised on 19. Hep B core IgM Nonreactive Nonreactive [facility] Comment: Interpretive Data If HepB Core IgM Ab is reported as Equivocal, a new sample should be drawn in two weeks for testing. Current interpretive data was last revised on 20. Hep C Ab Nonreactive Nonreactive [facility] Comment: Interpretive Data Nonreactive: Antibodies to HCV [...] last revised on 2019. HepBsAg Nonreactive Nonreactive [facility] Blood 02/19/2022 10:3 9 AM SOLAR THERMAL INSTALLER 02/19/2022 11:01 AM SOLAR THERMAL INSTALLER Enrrique Silvestre MD LAB MICROBIOLOGY - GENERA L ORDERABLES Final Result [facility] [address] [facility] Department [place] [address] from Last 3 Months or Most Recently Relevant to Health Maintenance Additional Health Concerns Infection Onset Date Last Indicated C. difficile 02/18/2022 02/18/2022 Insurance [place] [facility] Address: [address] [place] [address] MEDICARE MEDICARE AETNA [facility]IOR [facility] [employer] Address: [address] [address] [place] [address] Advance Directives For more information, please contact: [phone] * Full Code (Latest Code Status on File) Date Activated Date Inactivated Comments 02/18/2022 12:32 AM 02/20/2022 6:15 PM Care Teams Bus Girl Relationship Specialty Start Date End Date Gwendolyn Avina MD [address] [place] [address] PCP - General 06/08/16 Crescencio Riojas MD [phone] [place] [address] Surgeon Colon and Rectal Surgery 04/09/22
[2024-04-20 09:45] LABS: Add Urine Microscopic? YES; Appearance Urine Clear (Clear); Bilirubin Urine Negative (Negative); Blood Urine Negative (Negative); Color Urine Light Yellow (Yellow); Glucose Urine UA Negative (Negative); Hematocrit 39.6 % (35.0-42.0); Hemoglobin 12.7 g/dL (11.7-13.8); Ketones Urine Negative (Negative); Leukocyte Esterase Ur 2+ (Negative); Mean Corpuscular HGB Conc 32.1 g/dL (32-36); Mean Corpuscular Hemoglobin 31.4 pg (27.0-31.0); Mean Corpuscular Volume 97.8 fL (78.0-102.0); Mean Platelet Volume 9.6 fl (9.2-11.8); Nitrate Urine Negative (Negative); Platelet Count Result 268 K/mm3 (150-420); Protein Urine Negative (Negative); Red Blood Count 4.05 M/mm3 (4.20-5.40); Red Cell Distribution Width 14.1 % (11.6-14.4); Specific Grav Ur 1.025 (1.010-1.020); White Blood Count 6.8 K/mm3 (4.8-10.8)
[2024-04-20 09:58] LABS: Squamous Epithelial Cell Urine Few /hpf (Few); Transitional Epi Cells Urine Few /hpf
[2024-04-20 09:59] LABS: Bacteria Urine Trace /hpf
[2024-04-20 10:12] LABS: Hemoglobin A1C 5.6 % (<5.7)
[2024-04-20 10:28] LABS: Alanine Aminotransferase 36 U/L (14-59); Albumin Level 3.9 g/dL (3.4-5.0); Alkaline Phosphatase 64 U/L (46-116); Anion Gap 10 mmol/L (4-12); Aspartate Amino Transferase 21 U/L (15-37); Bilirubin,Total 0.6 mg/dL (0.00-1.00); Blood Urea Nitrogen 29 mg/dL (7-18); Calcium 9.7 mg/dL (8.5-10.1); Carbon Dioxide 30 mmol/L (21-32); Chloride 104 mmol/L (98-108); Cholesterol 171 mg/dL (0-200); Estimated Glomerular Filt Rate 49; Glucose 119 mg/dL (70-99); HDL Direct 75 mg/dL (40-60); LDL Cholesterol Calculated 84 mg/dL (<130); Osmolality Calculated 304 mOsm/kg (285-295); Potassium 4.6 mmol/L (3.5-5.1); Sodium 144 mmol/L (136-145); Total Protein 7.1 g/dL (6.4-8.2); Triglycerides 60 mg/dL (0-150)
[2024-04-21 15:13] LABS: Parathyroid Intact 55 pg/mL (16-77)
== END 2024-04-20 09:30 | disposition home or self-care (01) ==
LOC: CHSLAB 09:32
PROVIDERS: PCP Internal Medicine; Visit Provider Internal Medicine
DX: R76.0 Raised antibody titer (principal); R73.01 Impaired fasting glucose; E78.2 Mixed hyperlipidemia; I10 Essential (primary) hypertension; N18.2 Chronic kidney disease, stage 2 (mild)
CPT/HCPCS: 36415; 80053; 80061; 81001; 82550; 83036; 83970; 85027

== ENCOUNTER 2024-05-30 09:12 | Outpatient (CLI) | payer MEDICARE, SELFPAY ==
[2024-05-30 09:39] LABS: Add Urine Microscopic? YES; Appearance Urine Clear (Clear); Bilirubin Urine Negative (Negative); Blood Urine Negative (Negative); Color Urine Light Yellow (Yellow); Glucose Urine UA Negative (Negative); Ketones Urine Negative (Negative); Leukocyte Esterase Ur 1+ (Negative); Nitrate Urine Negative (Negative); Protein Urine Negative (Negative); Specific Grav Ur 1.015 (1.010-1.020); Urobilinogen Urine 0.2 mg/dL (0.2-1.0)
[2024-05-30 09:44] LABS: Bacteria Urine Trace /hpf; RBC Urine 0-2 /hpf (0-2); Squamous Epithelial Cell Urine Rare /hpf (Few); WBC Urine 0-3 /hpf (0-3)
--- OUTSIDE RECORDS SUMMARY | 2024-05-30 09:54 | XMS_ITS | Clinical Summary ---
Author Organization [facility] al Address [address] [place] [address] Care Team Providers Care Manager Study Name Role Phone Gwendolyn Avina MD Primary Care Provider [phone] Crescencio Riojas MD Unavailable [phone] Allergies No known active allergies Medications montelukast [...] (06/19/2016): Elevated cholesterol C. difficile colitis Immunizations Immunization Administration Dates Next Due Pfizer SARS-CoV-2 Monovalent [...] 02/19/2022 How often do you attend chur [employer] or gnosticist services? Never 02/19/2022 Do you belong to any clubs o r organizations such as sabianist groups, unions, fraternal or athletic groups, or [...] place to sleep or slept in a snf (including now)? No 02/19/2022 Comments No Sex and Gender Information Value Date Recorded Sex Assigned at Not on file Legal Sex Female 4:09 AM LANGUAGE INTERPRETER Gender Identity Not on file Sexual Orientation [...] CDT Respiratory Rate 18 02/20/2022 7:00 AM LANGUAGE INTERPRETER Oxygen Saturation 98% 04/07/2022 1:27 PM LANGUAGE INTERPRETER Inhaled Oxygen Concentration - - Weight 55.3 [...] HEPATITIS PANEL, ACUTE Routine 02/19/2022 10:39 AM LANGUAGE INTERPRETER from Last 3 Months or Most Recently [...] * Hepatitis panel, acute (02/19/2022 10:39 AM LANGUAGE INTERPRETER) Hep A IgM Nonreactive Nonreactive [facility] Comment: [...] last revised on 2019. HepBsAg Nonreactive Nonreactive [facility] Blood 02/19/2022 10:3 9 AM LANGUAGE INTERPRETER 02/19/2022 11:01 AM LANGUAGE INTERPRETER Enrrique Silvestre MD LAB MICROBIOLOGY - GENERA L ORDERABLES Final Result [facility] [address] [facility] Department [place] [address] from Last 3 Months or Most Recently Relevant to Health Maintenance Additional Health Concerns Infection Onset Date Last Indicated C. difficile 02/18/2022 02/18/2022 Insurance [place] [facility] Address: [address] [place] [address] MEDICARE MEDICARE AETNA [facility]IOR [facility] Advance Directives For more information, please contact: [phone] * Full Code (Latest Code Status on File) Date Activated Date Inactivated Comments 02/18/2022 12:32 AM 02/20/2022 6:15 PM Care Teams Manager Study Relationship Specialty Start Date End Date Gwendolyn Avina MD [address] [place] [address] PCP - General 06/08/16 Crescencio Riojas MD [phone] [place] [address] Surgeon Colon and Rectal Surgery 04/09/22
--- OUTSIDE RECORDS SUMMARY | 2024-05-30 09:55 | XMS_ITS | Clinical Summary ---
Author Organization [facility] Address [address] [place] [address] Care Team Providers Care Postal Sorting Officer Name Role Phone Unavailable Primary Care Provider [...] topic Meningococcal Vaccine Aged Out No conner jayy eligible based on patient's age to complete this topic RSV Immunizations Under 20 Months Aged Out No longer eligible based on patient's age to complete this topic
--- OUTSIDE RECORDS SUMMARY | 2024-05-30 09:55 | XMS_ITS | Referral Summary ---
Author Organization [facility] al Address [address] [place] [address] Care Team Providers Care Promotor Group Ticket Sales Name Role Phone Gwendolyn Avina MD Primary Care Provider [phone] Crescencio Riojas MD Unavailable [phone] Allergies No known active allergies Medications montelukast [...] often do you attend chur ch or yarsanism services? Never 02/19/2022 Do you belong to any clubs o r organizations such as taoism groups, unions, fraternal or athletic groups, or [...] place to sleep or slept in a care home (including now)? No 02/19/2022 Comments No Sex and Gender Information Value Date Recorded Sex Assigned at Not on file Legal Sex Female 4:09 AM NURSE CHARGE RN Gender Identity Not on file Sexual Orientation [...] CDT Respiratory Rate 18 02/20/2022 7:00 AM NURSE CHARGE RN Oxygen Saturation 98% 04/07/2022 1:27 PM NURSE CHARGE RN Inhaled Oxygen Concentration - - Weight 55.3 [...] HEPATITIS PANEL, ACUTE Routine 02/19/2022 10:39 AM NURSE CHARGE RN from Last 3 Months or Most Recently [...] * Hepatitis panel, acute (02/19/2022 10:39 AM NURSE CHARGE RN) Hep A IgM Nonreactive Nonreactive [facility] [...] on 19. Hep C Ab Nonreactive Nonreactive [facility] Comment: Interpretive Data Nonreactive: Antibodies to HCV [...] Nonreactive [facility] Blood 02/19/2022 10:3 9 AM NURSE CHARGE RN 02/19/2022 11:01 AM NURSE CHARGE RN Enrrique Silvestre MD LAB MICROBIOLOGY - GENERA L ORDERABLES Final Result [facility] [address] [facility] Department [place] [address] from Last 3 Months or Most Recently Relevant to Health Maintenance Additional Health Concerns Infection Onset Date Last Indicated C. difficile 02/18/2022 02/18/2022 Insurance [employer] [place] Op[employer] [place] MEDICARE MEDICARE AETNA [facility]IOR [facility] Advance Directives For more information, please contact: [phone] * Full Code (Latest Code Status on File) Date Activated Date Inactivated Comments 02/18/2022 12:32 AM 02/20/2022 6:15 PM Care Teams Promotor Group Ticket Sales Relationship Specialty Start Date End Date Gwendolyn Avina MD [address] [place] [address] PCP - General 06/08/16 Crescencio Riojas MD [phone] [place] [address] Surgeon Colon and Rectal Surgery 04/09/22
[2024-05-30 10:41] LABS: Anion Gap 8 mmol/L (4-12); Blood Urea Nitrogen 27 mg/dL (7-18); Calcium 9.7 mg/dL (8.5-10.1); Carbon Dioxide 29 mmol/L (21-32); Chloride 100 mmol/L (98-108); Estimated Glomerular Filt Rate 45; Glucose 102 mg/dL (70-99); Osmolality Calculated 289 mOsm/kg (285-295); Potassium 5.2 mmol/L (3.5-5.1); Sodium 137 mmol/L (136-145)
== END 2024-05-30 09:13 | disposition home or self-care (01) ==
LOC: CHSLAB 09:14
PROVIDERS: PCP Internal Medicine; Visit Provider Internal Medicine
DX: I10 Essential (primary) hypertension (principal)
CPT/HCPCS: 36415; 80048; 81001

== ENCOUNTER 2024-07-05 09:41 | Outpatient (CLI) | payer MEDICARE, SELFPAY ==
[2024-07-05 09:54] LABS: Basophils Absolute Auto 0.06 K/mm3 (0.00-0.10); Basophils Percent Auto 0.8 % (0.0-1.0); Eosinophils Absolute Auto 0.27 K/mm3 (0.02-0.50); Eosinophils Percent Auto 3.8 % (1.0-6.0); Hematocrit 39.5 % (35.0-42.0); Immature Granulocyte Absolute 0.04 K/mm3 (0.00-0.00); Immature Granulocyte Percent A 0.6 % (0.0-0.0); Lymphocytes Absolute Auto 2.21 K/mm3 (1.10-4.50); Lymphocytes Percent Auto 30.9 % (18.0-42.0); Mean Corpuscular HGB Conc 32.9 g/dL (32-36); Mean Corpuscular Hemoglobin 31.5 pg (27.0-31.0); Mean Corpuscular Volume 95.6 fL (78.0-102.0); Mean Platelet Volume 9.2 fl (9.2-11.8); Monocytes Percent Auto 8.4 % (2.0-11.0); Neutrophils Absolute Auto 3.98 K/mm3 (1.70-7.20); Neutrophils Percent Auto 55.5 % (50.0-70.0); Platelet Count Result 285 K/mm3 (150-420); Red Blood Count 4.13 M/mm3 (4.20-5.40); Red Cell Distribution Width 12.8 % (11.6-14.4); White Blood Count 7.2 K/mm3 (4.8-10.8)
[2024-07-05 10:29] LABS: Alanine Aminotransferase 38 U/L (14-59); Alkaline Phosphatase 74 U/L (46-116); Anion Gap 8 mmol/L (4-12); Aspartate Amino Transferase 28 U/L (15-37); Bilirubin Direct 0.2 mg/dL (0-0.2); Bilirubin,Total 0.7 mg/dL (0.00-1.00); Blood Urea Nitrogen 25 mg/dL (7-18); Calcium 9.7 mg/dL (8.5-10.1); Carbon Dioxide 29 mmol/L (21-32); Chloride 99 mmol/L (98-108); Estimated Glomerular Filt Rate 46; Glucose 100 mg/dL (70-99); Osmolality Calculated 286 mOsm/kg (285-295); Sodium 136 mmol/L (136-145); Total Protein 7.3 g/dL (6.4-8.2)
--- OUTSIDE RECORDS SUMMARY | 2024-07-05 10:50 | XMS_ITS | Encounter Summary ---
Author Organization [facility] Address [address] [place] [address] Phone Care Team Providers Care Marine Biologist Name Role Phone Gwendolyn Avina MD Primary Care Provider [phone] Crescencio Riojas MD Unavailable [phone] Encounter Details Date Type Department Care Team (Late st Contact Info) Description 06/13/2024 Results Follow-Up [facility] [address] [facility] 12[address] [place] [address] [place] [address] Kristy Huizar MD [address] [place] [address] Social History Tobacco Use Types Packs/Day Years Used Date Smoking Tobacco: Never Smokeless Tobacco: Never Alcohol Use Standard Drinks/Week Comments Yes 0 [...] often do you attend chur ch or sikh services? Never 02/19/2022 Do you belong to any clubs o r organizations such as latter-day groups, unions, fraternal or athletic groups, or [...] place to sleep or slept in a long-term (including now)? 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 difficile 02/18/2022 02/18/2022 documented as of this encounter Care Teams Marine Biologist Relationship Specialty Start Date End Date Gwendolyn Avina MD [address] [place] [address] PCP - General 06/08/16 Crescencio Riojas MD [phone] [place] [address] Surgeon Colon and Rectal Surgery 04/09/22 documented as of this encounter
--- OUTSIDE RECORDS SUMMARY | 2024-07-05 10:50 | XMS_ITS | Encounter Summary ---
Author Organization [facility] Address [address] [place] [address] Care Team Providers Care Heating And Ventilating Worker Name Role Phone Gwendolyn Avina MD Primary Care Provider + [phone] Crescencio Riojas MD Unavailable [phone] Reason for Referral * MRI/CAT/PET Scan (Routine) - Closed Specialty Diagnoses / Procedures Referred By Contac t Referred To Contact Radiology Diagnoses Hepatic steatosis Liver hemangioma Procedures MRI Abdomen MRCP W WO Contrast Incl 3D Kristy Huizar MD [address] [place] [address] Phone: tel: fax: [address] [phone] Referral ID Status Reason Start Date Expiration Date Visits Re quested Visits Authorized [id number] Closed 06/12/2024 07/12/2025 1 1 Reason for Visit * MRI/CAT/PET Scan (Routine) - Closed Specialty Diagnoses / Procedures Referred By Contac t Referred To Contact Radiology Diagnoses Hepatic steatosis Liver hemangioma Procedures MRI Abdomen MRCP W WO Contrast Incl 3D Kristy Huizar MD [address] [place] [address] Phone: tel: fax: [address] [phone] Referral ID Status Reason Start Date Expiration Date Visits Re quested Visits Authorized [id number] Closed 06/12/2024 07/12/2025 1 1 Encounter Details Date Type Department Care Team (Latest Contact Info) Description 07/05/2024 10:43 AM CDT Hospital Encounter [facility] [address] [place] [address] Hepatic steatosis; Liver hemangioma Social History Tobacco Use Types Packs/Day Years [...] often do you attend chur ch or sikhism services? Never 02/19/2022 Do you belong to [...] place to sleep or slept in a halfway (including now)? 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 difficile 02/18/2022 02/18/2022 documented as of this encounter Care Teams Heating And Ventilating Worker Relationship Specialty Start Date End Date Gwendolyn Avina MD [address] [place] [address] PCP - General 06/08/16 Crescencio Riojas MD [phone] [place] [address] Surgeon Colon and Rectal Surgery 04/09/22 documented as of this encounter
--- OUTSIDE RECORDS SUMMARY | 2024-07-05 10:50 | XMS_ITS | Clinical Summary ---
Author Organization [facility] Address [address] [place] [address] Care Team Providers Care Seed Corn Manager Production Name Role Phone Unavailable Primary Care Provider [...] 1 - Tdap) 1973 Mammogram Screening 1994 Pneumococcal Vaccine: 50+ Ye ars (1 of 1 - PCV) 2004 Zoster Vaccines (1 of 2) 2004 Dexa Scan (General) 07/31/2019 COVID-19 Vaccine ( - 2023-2 5 season) 2023 RSV Immunization or 60+ Years (1 [...]
--- OUTSIDE RECORDS SUMMARY | 2024-07-05 10:50 | XMS_ITS | Referral Summary ---
Author Organization [facility] Address [address] [place] [address] Care Team Providers Care Lumber Inspector Name Role Phone Gwendolyn Avina MD Primary Care Provider [phone] Crescencio Riojas MD Unavailable [phone] Encounters Date Type Department Care Team Description 07/05/2024 10:43 AM CDT Hospital Encounter [address] [address] Hepatic steatosis; Liver hemangioma 06/13/2024 Results Follow-Up [facility] G[facility]enterology [address] [place] [address] [place] [address] [place] [address] Kristy Huizar MD 06/12/2024 10:30 AM CDT Procedure visit [facility] [address] [place] [address] [place] [address] [place] [address] Hepatic steatosis; Liver hemangioma 06/12/2024 9:40 AM CDT Office Visit [facility] [address] [place] [address] [place] [address] [place] [address] Kristy Huizar MD Hepatic steatosis (Primary Dx); Liver hemangioma from Last 3 Months Allergies No known active allergies Medications montelukast (SINGULAIR) 10 mg tablet take 1 tablet by oral route every day in the evening 0 0 10/03/ [address] (PROTONIX) 40 mg [...] Active Additional Information Patient not taking.Reported on 06/12/2024 valsartan (DIOVAN) 80 mg tablet Take 1 [...] colitis Immunizations Immunization Administration Dates Next Due FestEvo SARS-CoV-2 Monovalent Vaccination (12+ Yrs) PURPLE 06/06/2020,05/09/2020 [...] often do you attend chur ch or mandaen services? Never 02/19/2022 Do you belong to any clubs o r organizations such as uatsdin groups, unions, fraternal or athletic groups, or [...] place to sleep or slept in a senior care (including now)? 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 Not on file Last Filed Vital Signs Vital Sign Reading Time Taken Comments Blood Pressure 151/87 06/12/2024 9:41 AM CDT Pulse 74 06/12/2024 9:41 AM CDT Temperature 36.6 C (97.9 F) 06/12/2024 9:41 AM CDT Respiratory Rate 18 02/20/2022 7:00 AM DICE PERSON Oxygen Saturation 98% 04/07/2022 1:27 PM DICE PERSON Inhaled Oxygen Concentration - - Weight 54.8 kg (120 lb 12.8 oz) 06/12/2024 9:41 AM CDT Height 152.4 cm (5') 06/12/2024 9:41 AM CDT Body Mass Index 23.59 06/12/2024 9:41 AM CDT Plan of Treatment Upcoming Encounters Date Type Department Care Team (Latest Contact Info) Description 07/05/2024 10:43 AM CDT Hospital Encounter [facility] [address] [place] [address] Hepatic steatosis; Liver hemangioma Procedures Procedure Name Priority Date/Time Associated Diagnosis Comments LIVER ELASTOGRAPHY W/O IMAGING W/I&R Routine 06/12/2024 11:34 AM CDT Hepatic steatosis Liver hemangioma SCREENING MAMMOGRAM BILATERAL W ALEJANDRO Schedule Routine, Read Routine (OP Routine) 01/13/2024 1:33 PM CDT Screening mammogram for breast cancer HEPATITIS PANEL, ACUTE Routine 02/19/2022 10:39 AM DICE PERSON from Last 3 Months or Most Recently Relevant to Health Maintenance Results * Liver Elastography w/o Imaging W/I&R -[facility] (All Locations) (06/12/2024 11:34 AM CDT) Anatomical Region Laterality Modality Other us Kristy Huizar MD GI PROCEDURE ORDERAB LES Final Result * Screening Mammogram Bilateral W Alejandro (01/13/2024 [...] * Hepatitis panel, acute (02/19/2022 10:39 AM DICE PERSON) Hep A IgM Nonreactive Nonreactive LIVE Comment: [...] on 19. Hep C Ab Nonreactive Nonreactive LIVE Comment: Interpretive Data Nonreactive: Antibodies to HCV [...] revised on 2019. HepBsAg Nonreactive Nonreactive LIVE HAHN Blood 02/19/2022 10:3 9 AM DICE PERSON 02/19/2022 11:01 AM DICE PERSON us Enrrique Silvestre MD LAB MICROBIOLOGY - GENERA L ORDERABLES Final Result LIVE HAHN [address] [facility] Department [place] [address] from Last 3 Months or Most Recently Relevant to Health Maintenance Additional Health Concerns Infection Onset Date Last Indicated C. difficile 02/18/2022 02/18/2022 Insurance [employer] [place] [employer] [facility] MEDICARE [facility] SENIOR SUPPLEMENT MEDICARE AET SENIOR SUPPLEMENT Advance Directives For more information, please contact: [phone] * Full Code (Latest Code Status on File) Date Activated Date Inactivated Comments 02/18/2022 12:32 AM 02/20/2022 6:15 PM Care Teams Lumber Inspector Relationship Specialty Start Date End Date Gwendolyn Avina MD [address] [place] [address] PCP - General 06/08/16 Crescencio Riojas MD [address] [facility] [phone] [place] [address] Surgeon Colon and Rectal Surgery 04/09/22
--- OUTSIDE RECORDS SUMMARY | 2024-07-05 10:50 | XMS_ITS | Clinical Summary ---
Author Organization [facility] Address [address] [place] [address] Care Team Providers Care Civil Transportation Engineer Name Role Phone Gwendolyn Avina MD Primary Care Provider + [phone] Crescencio Riojas MD Unavailable [phone] Allergies No known active allergies Medications montelukast [...] Overview (06/19/2016): Elevated cholesterol C. difficile colitis Encounters Date Type Department Care Team Description 07/05/2024 10:43 AM CDT Hospital Encounter [facility] [address] [place] [address] Hepatic steatosis; Liver hemangioma 06/13/2024 Results Follow-Up [facility] Gastroenterology [address] [place] [address] 12th [place] [address] [place] [address] Kristy Huizar MD 06/12/2024 10:30 AM CDT Procedure visit [facility]enter[facility] [address] [place] [address] [place] [address] [place] [address] Hepatic steatosis; Liver hemangioma 06/12/2024 9:40 AM CDT Office Visit [facility] G[facility]enter[facility] [address] [place] [address] [place] [address] Kristy Huizar MD Hepatic steatosis (Primary Dx); Liver hemangioma from Last 3 Months Immunizations Immunization Administration Dates Next Due Pfizer [...] often do you attend chur ch or scientology services? Never 02/19/2022 Do you belong to any clubs o r organizations such as hinduism groups, unions, fraternal or athletic groups, or [...] place to sleep or slept in a penitentiary (including now)? No 02/19/2022 Comments No Sex and Gender Information Value Date Recorded Sex Assigned at Not on file Legal Sex Female 4:09 AM FILM LIBRARY CLERK Gender Identity Not on file Sexual Orientation [...] CDT Respiratory Rate 18 02/20/2022 7:00 AM FILM LIBRARY CLERK Oxygen Saturation 98% 04/07/2022 1:27 PM FILM LIBRARY CLERK Inhaled Oxygen Concentration - - Weight 54.8 kg (120 lb 12.8 oz) 06/12/2024 9:41 AM CDT Height 152.4 cm (5') 06/12/2024 9:41 AM CDT Body Mass Index 23.59 06/12/2024 9:41 AM CDT Plan of Treatment Upcoming Encounters Date Type Department Care Team (Latest Contact Info) Description 07/05/2024 10:43 AM CDT Hospital Encounter [facility] [address] [place] [address] Hepatic steatosis; Liver hemangioma Health Maintenance Due Date Last Done Comments Colon Cancer Screening-Colonoscopy 1955 Depression Screening 1955 Osteoporosis Screening-Bone Density Scan 1954 Hepatitis B Screening 1972 Fall Risk Assessment 02/20/2023 02/20/2022 DTaP/Tdap/Td Vaccine (2 - Td or Tdap) 10/05/2023 10/04/2013 Covid-19 Vaccine (3 - 2023-2 5 season) 2023 06/06/2020, 05/09/2020 Well Visit 65+ 01/05/2024 01/04/2023, 12/13, 12/11/2020, Additional history exists Influenza Vaccine (Season Ended) 2024 11/30/19, 11/14/2014 Breast Cancer Screening-Mammogram 01/12/2025 01/13/2024, 01/04/2023, 12/29/2021, [...] HEPATITIS PANEL, ACUTE Routine 02/19/2022 10:39 AM FILM LIBRARY CLERK from Last 3 Months or Most Recently Relevant to Health Maintenance Results * Liver Elastography w/o Imaging W/I&R -[facility] (All Locations) (06/12/2024 11:34 AM CDT) [...] * Hepatitis panel, acute (02/19/2022 10:39 AM FILM LIBRARY CLERK) Hep A IgM Nonreactive Nonreactive LIVE Comment: [...] LIVE HAHN Blood 02/19/2022 10:3 9 AM FILM LIBRARY CLERK 02/19/2022 11:01 AM FILM LIBRARY CLERK us Enrrique Silvestre MD LAB MICROBIOLOGY - GENERA L ORDERABLES Final Result LIVE [facility]HN [address] [facility] Department [place] [address] from Last 3 Months or Most Recently Relevant to Health Maintenance Additional Health Concerns Infection Onset Date Last Indicated C. difficile 02/18/2022 02/18/2022 Insurance [employer] [place] [employer] OOS MEDICARE [facility] SENIOR SUPPLEMENT MEDICARE AET SENIOR SUPPLEMENT Advance Directives For more information, please contact: [phone] * Full Code (Latest Code Status on File) Date Activated Date Inactivated Comments 02/18/2022 12:32 AM 02/20/2022 6:15 PM Care Teams Civil Transportation Engineer Relationship Specialty Start Date End Date Gwendolyn Avina MD [address] [place] [address] PCP - General 06/08/16 Crescencio Riojas MD [phone] [place] [address] Surgeon Colon and Rectal Surgery 04/09/22
== END 2024-07-05 09:42 | disposition home or self-care (01) ==
LOC: CHSLAB 09:44
PROVIDERS: PCP Internal Medicine; Visit Provider Internal Medicine Gastroenterology
DX: E86.0 Dehydration (principal); K76.0 Fatty (change of) liver, not elsewhere classified; D18.03 Hemangioma of intra-abdominal structures
CPT/HCPCS: 36415; 80053; 82248; 85025

== ENCOUNTER 2024-11-06 09:24 | Outpatient (CLI) | payer MEDICARE, SELFPAY ==
[2024-11-06 09:56] LABS: Hematocrit 39.2 % (35.0-42.0); Hemoglobin 12.8 g/dL (11.7-13.8); Immature Granulocyte Percent A 0.4 % (0.0-0.0); Lymphocytes Absolute Auto 2.02 K/mm3 (1.10-4.50); Mean Corpuscular HGB Conc 32.7 g/dL (32-36); Mean Corpuscular Hemoglobin 31.7 pg (27.0-31.0); Mean Corpuscular Volume 97.0 fL (78.0-102.0); Nucleated Red Blood Cells Absolute Auto 0.00 K/mm3 (0.00-0.00); Nucleated Red Blood Cells Perc 0.0 % (0-0.0); Platelet Count Result 275 K/mm3 (150-420); Red Blood Count 4.04 M/mm3 (4.20-5.40); White Blood Count 7.3 K/mm3 (4.8-10.8)
[2024-11-06 10:00] LABS: Add Urine Microscopic? YES; Appearance Urine Clear (Clear); Glucose Urine UA Negative (Negative); Leukocyte Esterase Ur 1+ LEU/UL (Negative); Nitrate Urine Negative (Negative); Specific Grav Ur 1.020 (1.010-1.020)
--- OUTSIDE RECORDS SUMMARY | 2024-11-06 10:03 | XMS_ITS | Clinical Summary ---
Author Organization [facility] Address [address] [place] [address] Care Team Providers Care Agile Developer Name Role Phone Gwendolyn Avina MD Primary Care Provider + [phone] Crescencio Riojas MD Unavailable [phone] Allergies No known active allergies Medications montelukast [...] Active Additional Information Patient not taking.Reported on 11/02/2024 valsartan (DIOVAN) 80 mg tablet Take 1 [...] Encounters Date Type Department Care Team Description 11/02/2024 1:10 PM CDT Office Visit [facility] [address] [place] [address] Caitlyn Isabel MD Increased endometrial stripe thickness (Primary Dx) 11/02/2024 Orders Only [facility] [address] [place] [address] Caitlyn Isabel MD Thickened endometrium (Primary Dx) 10/16/2024 Results Follow-Up [facility] [address] [place] [address] Caitlyn Isabel MD US Pelvis W Endovaginal 10/04/2024 3:30 PM CDT Ancillary Procedure [facility] [address] [place] [address] Increased endometrial stripe thickness 09/19/2024 Telephone [facility] [address] [place] [address] Caitlyn Isabel MD Patient issue/concern 09/06/2024 Telephone [facility] [address] [facility] 2nd Floor [address] [place] [address] Kristy Huizar MD from Last 3 Months Immunizations Immunization Administration Dates Next Due Pfizer SARS-CoV-2 Monovalent Vaccination (12+ Yrs) PURPLE 06/06/2020,05/09/2020 Surgical History Surgery Date Site/Laterality Comments OTHER SURGICAL HISTORY x 3 - , , ENDOMETRIAL ABLATION Endometrial ablation TUBAL LIGATION Bilateral tubal ligation CHOLECYSTECTOMY Cholecystectomy Medical History Medical History Date Comments Hypertension Ulcerative colitis Asthma Family History Medical History Relation Name [...] oz pur e alcohol) Social Connection and Isolation Panel Answer Date Recorded In a typical week, [...] any clubs o r organizations such as holiness groups, unions, fraternal or athletic groups, or [...] place to sleep or slept in a residential (including now)? No 02/19/2022 Comments No Sex and Gender Information Value Date Recorded Sex Assigned at Not on file Legal Sex Female 4:09 AM VACUUM TESTER CANS Gender Identity Not on file Sexual Orientation [...] Sign Reading Time Taken Comments Blood Pressure 142/88 11/02/2024 1:05 PM CDT Pulse 74 06/12/2024 9:41 AM CDT Temperature 36.6 C (97.9 F) 06/12/2024 9:41 AM CDT Respiratory Rate 18 02/20/2022 7:00 AM VACUUM TESTER CANS Oxygen Saturation 98% 04/07/2022 1:27 PM VACUUM TESTER CANS Inhaled Oxygen Concentration - - Weight 55.3 kg (122 lb) 11/02/2024 1:05 PM CDT Height 152.4 cm (5') 06/12/2024 9:41 AM CDT Body Mass Index 23.83 06/12/2024 9:41 AM CDT Plan of Treatment Health Maintenance Due Date Last Done Comments Colon Cancer Screening-Colonoscopy 1954 Depression Screening 1954 Osteoporosis Screening-Bone Density Scan 1954 Hepatitis B Screening 1972 Fall Risk Assessment 02/20/2023 02/20/2022 DTaP/Tdap/Td Vaccine (2 - Td or Tdap) 10/05/2023 10/04/2013 Covid-19 Vaccine (4 - 2023-2 5 season) 2023 01/20/2021, 06/06/2020, 05/09/2020 Well Visit 65+ 01/05/2024 01/04/2023, 12/13, 12/11/2020, Additional history exists Influenza Vaccine (#1) 2024 11/30/2019, 2014 Breast Cancer Screening-Mammogram 01/12/2025 01/13/2024, 01/04/2023, 12/29/2021, Additional history exists Zoster Vaccine Completed 07/27/2018, 11/2018, 11/14/2014 Pneumococcal vaccine 65+ Completed 11/08/2019, 05/15 Hepatitis C Screening Completed 02/19/2022, 017 Procedures Procedure Name Priority Date/Time Associated Diagnosis Comments US PELVIS W ENDOVAGINAL Schedule Routine, Read Routine (OP Routine) 10/04/2024 4:01 PM CDT Increased endometrial stripe thickness SCREENING MAMMOGRAM BILATERAL W ALEJANDRO Schedule Routine, Read Routine (OP Routine) 01/13/2024 1:33 PM CDT Screening mammogram for breast cancer HEPATITIS PANEL, ACUTE Routine 02/19/2022 10:39 AM VACUUM TESTER CANS from Last 3 Months or Most Recently Relevant to Health Maintenance Results * US Pelvis W Endovaginal (10/04/2024 4:01 PM CDT) Anatomical Region Laterality Modality Pelvis N/A Ultrasound 10/14/2024 10:3 3 AM CDT Narrative 10/14/2024 10:36 AM CDT EXAM DESCRIPTION: US PELVIS W ENDOVAGINAL REASON FOR STUDY: endometrial thickening seen on MRI, there is a history of endometrial ablation and bilateral tubal ligation. TECHNIQUE: Grayscale ultrasound of the pelvic contents was performed with transabdominal and transvaginal transducer. COMPARISON: CT abdomen and pelvis 03/30/2022. FINDINGS: UTERUS: The uterus is heterogeneous, anteverted measuring 7.3 x 4.8 x 4.3 cm. There are multiple rounded hyperechoic areas of shadowing likely due to calcifications associated with fibroids, this limits intrinsic assessment of the uterus. Measured fibroid 2.2 x 2.2 x 2.1 cm with additional fibroids present. Nabothian cysts are noted. There is some fluid in the endocervical canal. ENDOMETRIUM: The endometrium not well seen in keeping with the history of endometrial ablation, where seen the endometrium is estimated at 0.7 cm (57). RIGHT OVARY: The right ovary measures 1.6 x 1.3 x 1.8 cm. There is documentation of color Doppler flow in the right ovary. There is a right ovarian cystic structure 0.9 x 1.4 x 1.4 cm. LEFT OVARY: The left ovary could not be demonstrated for assessment. PELVIC FLUID: There is no evidence of free fluid in the pelvis. OTHER: No other significant findings. IMPRESSION: 1. Heterogeneous uterus with multiple fibroids. 2. Endometrium not well seen in keeping with the history of endometrial ablation. Where seen endometrium top normal 0.7 cm which is nonspecific, correlate for any history of postmenopausal bleeding. In the absence of this, may consider a six-month ultrasound follow-up. If there are worrisome clinical features, could consider hysteroscopy. 3. Right ovarian cystic structure 1.4 cm. 1 year ultrasound follow-up recommended. 4. Left ovary could not be demonstrated for assessment. THIS IS AN ELECTRONICALLY VERIFIED FINAL REPORT 10/14/2024 10:36 AM - Electronically signed by Willie Carson M.D. CH: KRIS Report ID: [id number] Reading Location: [id number] Procedure Note Willie Carson Jr., MD - 10/14/2024 EXAM DESCRIPTION: US PELVIS W ENDOVAGINAL REASON FOR STUDY: endometrial thickening seen on MRI, there is a historyof endometrial ablation and bilateral tubal ligation. TECHNIQUE: Grayscale ultrasound of the pelvic contents was performed with transabdominal and transvaginal transducer. COMPARISON: CT abdomen and pelvis 03/30/2022. FINDINGS: UTERUS: The uterus is heterogeneous, anteverted measuring 7.3 x 4.8 x 4.3cm. There are multiple rounded hyperechoic areas of shadowing likely due to calcifications associated with fibroids, this limits intrinsic assessmentof the uterus. Measured fibroid 2.2 x 2.2 x 2.1 cm with additional fibroids present. Nabothian cysts are noted. There is some fluid in theendocervical canal. ENDOMETRIUM: The endometrium not well seen in keeping with the history of endometrial ablation, where seen the endometrium is estimated at 0.7 cm(57). RIGHT OVARY: The right ovary measures 1.6 x 1.3 x 1.8 cm. There is documentation of color Doppler flow in the right ovary. There is a right ovarian cystic structure 0.9 x 1.4 x 1.4 cm. LEFT OVARY: The left ovary could not be demonstrated for assessment. PELVIC FLUID: There is no evidence of free fluid in the pelvis. OTHER: No other significant findings. IMPRESSION: 1. Heterogeneous uterus with multiple fibroids. 2. Endometrium not well seen in keeping with the history of endometrial ablation. Where seen endometrium top normal 0.7 cm which is nonspecific, correlate for any history of postmenopausal bleeding. In the absence ofthis, may consider a six-month ultrasound follow-up. If there are worrisome clinical features, could consider hysteroscopy. 3. Right ovarian cystic structure 1.4 cm. 1 year ultrasound follow-up recommended. 4. Left ovary could not be demonstrated for assessment. THIS IS AN ELECTRONICALLY VERIFIED FINAL REPORT 10/14/2024 10:36 AM - Electronically signed by Willie Carson M.D. CH: KRIS Report ID: [id number] Reading Location: [id number] Caitlyn Isabel MD [place] US PROCEDURES Fin al Result * Screening Mammogram Bilateral W Alejandro [...] no suspicious interval change. Caitlyn Isabel MD [place] MAMMO PROCEDURES Final Result * Hepatitis panel, acute (02/19/2022 10:39 AM VACUUM TESTER CANS) Hep A IgM Nonreactive Nonreactive LIVE Comment: [...] LIVE HAHN Blood 02/19/2022 10:3 9 AM VACUUM TESTER CANS 02/19/2022 11:01 AM VACUUM TESTER CANS us Enrrique Silvestre MD LAB MICROBIOLOGY - GENERA L ORDERABLES Final Result [facility] [address] [facility] Department [place] [address] from Last 3 Months or Most Recently Relevant to Health Maintenance Additional Health Concerns Infection Onset Date Last Indicated C. difficile 02/18/2022 02/18/2022 Insurance [employer] [place] [employer] OOS MEDICARE AET SENIOR SUPPLEMENT MEDICARE [employer] SENIOR SUPPLEMENT Advance Directives For more information, please contact: [phone] * Full Code (Latest Code Status on File) Date Activated Date Inactivated Comments 02/18/2022 12:32 AM 02/20/2022 6:15 PM Care Teams Agile Developer Relationship Specialty Start Date End Date Gwendolyn Avina MD [address] [place] [address] PCP - General 06/08/16 Crescencio Riojas MD [phone] [place] [address] Surgeon Colon and Rectal Surgery 04/09/22
--- OUTSIDE RECORDS SUMMARY | 2024-11-06 10:03 | XMS_ITS | Encounter Summary ---
Author Organization [facility] Healthcare Address [address] [place] [address] Care Team Providers Care Chemical Process Project Engineer Name Role Phone Gwendolyn Avina MD Primary Care Provider + [phone] Crescencio Riojas MD Unavailable [phone] Encounter Details Date Type Department Care Team (Late st Contact Info) Description 10/16/2024 Results Follow-Up [facility] [address] [place] [address] Radha Isabel MD [address] [place] [address] US Pelvis W Endovaginal Social History Tobacco Use Types Packs/Day Years [...] any clubs o r organizations such as sikhism groups, unions, fraternal or athletic groups, or [...] place to sleep or slept in a intermediate (including now)? 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 documented in this encounter Plan of Treatment Not on file documented as of this encounter Visit Diagnoses Not on filedocumented in this encounter Additional Health Concerns Infection Onset Date Last Indicated Resolved Time C. difficile 02/18/2022 02/18/2022 documented as of this encounter Care Teams Chemical Process Project Engineer Relationship Specialty Start Date End Date Gwendoyln Avina MD [address] [place] [address] PCP - General 06/08/16 Crescencio Riojas MD [address] [facility] [phone] [place] [address] Surgeon Colon and Rectal Surgery 04/09/22 documented as of this encounter
--- OUTSIDE RECORDS SUMMARY | 2024-11-06 10:03 | XMS_ITS | Patient Health Record ---
Author Organization [facility] Address [address] [place], [place] [id number] Care Team Providers Care Joist Setter Name Role Phone JOSH ALBERT Unavailable [phone] Gwendolyn Avina Unavailable Unavailable Reason For Referral No Information Plan Of Treatment No Information Insurance Providers Payer Name Payer Address Payer Phone Subscriber Number Group Number Insured Name Patient Relationship to Insured Coverage Start Date Coverage End Date [facility] ATTN CLAIMS [address] [place] [address] [id number] Self - patient is the insured
[2024-11-06 10:24] LABS: Hemoglobin A1C 5.8 % (<5.7)
[2024-11-06 10:44] LABS: Alanine Aminotransferase 29 U/L (6-35); Albumin Level 4.4 g/dL (3.5-5.1); Alkaline Phosphatase 61 U/L (38-126); Anion Gap 7 mmol/L (4-12); Aspartate Amino Transferase 34 U/L (14-36); Bilirubin,Total 0.7 mg/dL (0.2-1.3); Blood Urea Nitrogen 21 mg/dL (7-17); Calcium 10.2 mg/dL (8.4-10.2); Carbon Dioxide 29 mmol/L (22-30); Chloride 105 mmol/L (98-107); Cholesterol 165 mg/dL (0-200); Creatine Kinase 70 U/L (30-135); Estimated Glomerular Filt Rate 55; Glucose 103 mg/dL (65-110); HDL Direct 79 mg/dL; Osmolality Calculated 295 mOsm/kg (285-295); Potassium 4.8 mmol/L (3.4-5.0); Sodium 141 mmol/L (137-145); Total Protein 7.0 g/dL (6.3-8.2); Triglycerides 59 mg/dL (<150)
== END 2024-11-06 09:25 | disposition home or self-care (01) ==
LOC: CHSLAB 09:26
PROVIDERS: PCP Internal Medicine; Visit Provider Internal Medicine
DX: R73.01 Impaired fasting glucose (principal); E78.2 Mixed hyperlipidemia; N18.2 Chronic kidney disease, stage 2 (mild); M81.0 Age-related osteoporosis without current pathological fracture; I12.9 Hypertensive chronic kidney disease with stage 1 through stage 4 chronic kidney disease, or unspecified chronic kidney disease
CPT/HCPCS: 36415; 80053; 80061; 81001; 82306; 82550; 83036; 85025; 87086

== ENCOUNTER 2025-02-16 11:25 | Outpatient (CLI) | payer MEDICARE, SELFPAY ==
--- OUTSIDE RECORDS SUMMARY | 2025-02-16 11:36 | XMS_ITS | Clinical Summary ---
Author Organization [facility] Address [address] [place] [address] Care Team Providers Care Steam Gigger Name Role Phone Gwendolyn Avina MD Primary Care Provider + [phone] Crescencio Riojas MD Unavailable [phone] Allergies No known active allergies Medications montelukast (SINGULAIR) 10 mg tablet take 1 tablet by oral route every day in the evening [address] (PROTONIX) 40 mg EC tablet Take 1 tablet (40 mg total) by mouth 3 (three) times a week 7 Active atorvastatin (LIPITOR) 40 mg tablet Take 1 tablet (40 mg total) by mouth daily 1 Active acetaminophen (TYLENOL) 325 mg tabletIndicatio ns:Fever,Pain Take 2 tablets (650 mg total) by mouth every 4 (four) hours as needed for pain, headaches or fever 30 tablet 2 Active valsartan (DIOVAN) 80 mg tablet Take 1 tablet (80 mg total) by mouth daily 4 Active miSOPROStoL (CYTOTEC) 200 mcg tablet Take 1 tablet (200 mcg total) by mouth once 2 tablets orally 24 hours prior to procedure 1 tablet 5 Active carvediloL (COREG) 12.5 mg tablet Take 1 tablet (12.5 mg total) by mouth 2 (two) times a day with meals 5 Active Lactobacillus rhamnosus GG (CULTURELLE) 10 billion cell capsule Take 1 capsule by mouth daily Active carvediloL (COREG) 25 mg tablet Take 0.5 tablets (12.5 mg total) by mouth 2 (two) times a day 02/14/20 Discontinu ed(Alterna te therapy) Active Problems Problem Noted Date Diagnosed Date Thickened endometrium 01/26/2025 Stenosis of cervix 01/26/2025 Diverticulitis of both large and small intestine with abscess 04/07/2022 Colitis 02/17/2022 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 difficile colitis Encounters Date Type Department Care Team Description 01/31/2025 Telephone [facility] [address] [place] [address] Radha Isabel MD 01/19/2025 Results Follow-Up [facility] [address] [place] [address] Radha Isabel MD US Pelvis W Endovaginal 01/18/2025 10:30 AM CLIENT LIAISON Ancillary Procedure [facility] [address] [place] [address] Thickened endometrium 01/18/2025 10:00 AM CLIENT LIAISON Ancillary Procedure [facility] [address] [place] [address] Encounter for screening mammogram for malignant neoplasm of breast 01/18/2025 8:40 AM CLIENT LIAISON Office Visit [facility] [address] [place] [address] Radha Isabel MD Increased endometrial stripe thickness (Primary Dx); Cervical stenosis (uterine cervix) 01/18/2025 Orders Only [facility] [address] [place] [address] Radha Isabel MD Screening mammogram, encounter for (Primary Dx) 01/15/2025 Telephone [facility] [address] [place] [address] Radha Isabel MD Appointment Reminder Call from Last 3 Months Immunizations Immunization Administration Dates Next Due Pfizer SARS-CoV-2 Monovalent Vaccination (12+ Yrs) PURPLE 06/06/2020,05/09/2020 Surgical History Surgery Date Site/Laterality Comments OTHER SURGICAL HISTORY x 3 - , , ENDOMETRIAL ABLATION Endometrial ablation TUBAL LIGATION Bilateral tubal ligation CHOLECYSTECTOMY Cholecystectomy SECTION 1984, 1985, 1989 Medical History Medical History Date Comments Hypertension Ulcerative colitis Asthma Cataract 10/2023 C. difficile colitis Family History Medical History Relation Name Comments Brain cancer Cousin Diabetes Father Diabetes mellit us; /Family history of diabetes mellitus - (Added by TW Conv) Hypertension Father Hypertension; / Family history of hypertension - (Added by TW Conv) Alzheimer's disease Maternal Grandfather Lester Colon cancer Maternal Grandmother Alzheimer's disease Mother Nakia Breast cancer Other Family history of Cancer, breast; RED 10/08/2015 - Maternal great aunt, distant cousin - cause of at age 40 Relation Name Status Comments Cousin Father Maternal Grandfather Lester Maternal Grandmother (Age 80) Mother Nakia Other Social History Tobacco Use Types Packs/Day Years Used Date Smoking Tobacco: Never Smokeless Tobacco: Never Tobacco Cessation:Counseling Given: Not Answered Alcohol Use Standard Drinks/Week Comments Yes 2 (1 standard drink = 0.6 oz pur [...] often do you attend chur ch or christian services? Never 02/19/2022 Do you belong to any clubs o r organizations such as christian groups, unions, fraternal or athletic groups, or school groups? No 02/19/2022 How often do you attend meet ings of the clubs or organizations you belong to? Never 02/19/2022 Are you , , di vorced, , never , or living with a partner? 02/19/2022 Overall Financial Resource Strain (CARDIA) Answe r [...] place to sleep or slept in a custodial (including now)? No 02/19/2022 AUDIT-C Answer Date Recorded Q1: How often do you have a drink containing alc ohol? 2-3 times a week 02/13/2025 Q2: How many drinks containi ng alcohol do you have on a typical day when you are drinking? 1 or 2 02/13/2025 Q3: How often do you have si x or more drinks on one occasion? 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 Not on file Not on file Obstetrics History Para Term AB IAB SAB Ectopic Multiple Livin g Live Births 3 3 3 0 0 3 3 Date Outcome GA Total Labor Labor/2nd/3rd Weight Sex Type Anes PTL Lashonda A1 A5 Name Clin Term Term Term Last Filed Vital Signs Vital Sign Reading Time Taken Comments Blood Pressure 128/70 01/18/2025 8:42 AM CLIENT LIAISON Pulse 74 06/12/2024 9:41 AM CDT Temperature 36.6 C (97.9 F) 06/12/2024 9:41 AM CDT Respiratory Rate 18 02/20/2022 7:00 AM CLIENT LIAISON Oxygen Saturation 98% 04/07/2022 1:27 PM CLIENT LIAISON Inhaled Oxygen Concentration - - Weight 54.9 kg (121 lb 0.5 oz) 01/18/2025 9:37 A M CLIENT LIAISON Height 152.4 cm (5') 01/18/2025 9:37 AM CLIENT LIAISON Body Mass Index 23.64 01/18/2025 9:37 AM CLIENT LIAISON Plan of Treatment Upcoming Encounters Date Type Department Care Team (Late st Contact Info) Description 02/19/2025 10:20 AM CLIENT LIAISON Hospital Encounter [facility] Operating Room [address] [place] [address] Radha Isabel MD [address] [place] [address] 02/19/2025 10:20 AM CLIENT LIAISON Anesthesia Event [facility] Operating Room [address] [place] [address] Emeka Elliott MD [address] [facility] [place] [address] 02/19/2025 10:20 AM CLIENT LIAISON - 02/19/2025 11:35 AM CLIENT LIAISON Surgery [facility] Operating Room [address] [place] [address] Radha Isabel MD [address] [place] [address] MYOSURE DILATION AND CURETTAGE/HYSTEROS COPY Scheduled Procedures Name Priority Associated Diagnoses Date/Ti me DILATION AND CURETTAGE/HYSTEROSCOPY Thickened endometrium Stenosis of cervix 02/19/2025 10:20 AM CLIENT LIAISON Health Maintenance Due Date Last Done Comments Colon Cancer Screening-Colonoscopy 1955 Depression Screening 1955 Osteoporosis Screening-Bone Density Scan 1955 Hepatitis B Screening 1972 Fall Risk Assessment 02/20/2023 02/20/2022 DTaP/Tdap/Td Vaccine (2 - Td or Tdap) 10/05/2023 10/04/2013 Well Visit 65+ 01/05/2024 01/04/2023, 12/13, 12/11/2020, Additional history exists Covid-19 Vaccine (2024-2 6 season) 2024 01/20/2021, 06/06/2020, 05/09/2020 Influenza Vaccine (#1) 2024 11/30/2019, 2014 Breast Cancer Screening-Mammogram 01/18/2026 01/18/2025, 01/13/2024, 01/04/2023, Additional history exists Zoster Vaccine Completed 07/27/2018, 11/2018, 11/14/2014 Pneumococcal vaccine 65+ Completed 11/08/2019, 05/15 Hepatitis C Screening Completed 02/19/2022, 017 Procedures Procedure Name Priority Date/Time Associated Diagnosis Comments US PELVIS W ENDOVAGINAL Schedule Routine, Read Routine (OP Routine) 01/18/2025 11:47 AM CLIENT LIAISON Thickened endometrium SCREENING MAMMOGRAM BILATERAL W ALEJANDRO Schedule Routine, Read Routine (OP Routine) 01/18/2025 9:35 AM CLIENT LIAISON Encounter for screening mammogram for malignant neoplasm of breast HEPATITIS PANEL, ACUTE Routine 02/19/2022 10:39 AM CLIENT LIAISON from Last 3 Months or Most Recently Relevant to Health Maintenance Results * US Pelvis W Endovaginal (01/18/2025 11:47 AM CLIENT LIAISON) Anatomical Region Laterality Modality Pelvis N/A Ultrasound 01/18/2025 12:1 1 PM CLIENT LIAISON Impressions 01/18/2025 12:11 PM CLIENT LIAISON Suboptimal evaluation due to poor acoustic windows and shadowing. 1. Endometrium and left ovary not visualized not visualized. 2. Heterogeneous uterus with calcification and ill-defined fibroid. 3. Nonspecific small volume anechoic fluid within the endocervical canal. Electronically signed by: Garett Lima M.D. Narrative 01/18/2025 12:11 PM CLIENT LIAISON PROCEDURE: US PELVIS W ENDOVAGINAL HISTORY: Thickened Endometrium COMPARISONS: 03/30/2022, 07/05/2024, 10/04/2024 TECHNIQUE: Transabdominal and transvaginal scanning is utilized. Multiple grayscale and color Doppler images of the pelvis. Spectral analysis also performed. FINDINGS: Uterus: Measures 4.4 x 6.0 x 3.1 cm. Heterogeneous with multiple calcifications and shadowing. Endometrial stripe not clearly visualized. Anechoic fluid within the endocervical canal. Ill-defined fibroid with calcification measuring 2.8 x 2.5 x 2.3 cm. Right Ovary: Measures 2.5 x 1.2 x 2.2 cm. No significant abnormality. Normal arterial waveform and mixed arterial venous waveform. Left Ovary: Not visualized. Other: No significant free fluid. Procedure Note Garett Lima MD - 01/18/2025 PROCEDURE: US PELVIS W ENDOVAGINAL HISTORY: Thickened Endometrium COMPARISONS: 03/30/2022, 07/05/2024, 10/04/2024 TECHNIQUE: Transabdominal and transvaginal scanning is utilized. Multiple grayscale and color Doppler images of the pelvis. Spectral analysis also performed. FINDINGS: Uterus: Measures 4.4 x 6.0 x 3.1 cm. Heterogeneous with multiple calcifications and shadowing. Endometrial stripe not clearly visualized. Anechoic fluid within the endocervical canal. Ill-defined fibroid with calcification measuring 2.8 x 2.5 x 2.3 cm. Right Ovary: Measures 2.5 x 1.2 x 2.2 cm. No significant abnormality. Normal arterial waveform and mixed arterial venous waveform. Left Ovary: Not visualized. Other: No significant free fluid. IMPRESSION: Suboptimal evaluation due to poor acoustic windows and shadowing. 1. Endometrium and left ovary not visualized not visualized. 2. Heterogeneous uterus with calcification and ill-defined fibroid. 3. Nonspecific small volume anechoic fluid within the endocervical canal. Electronically signed by: Garett Lima M.D. Result [facility] Radha Isabel MD [facility] US PROCEDURES Fin al Result * Screening Mammogram Bilateral W Alejandro (01/18/2025 9:35 AM CLIENT LIAISON) Anatomical Region Laterality Modality Breast Bilateral Mammography Impressions 01/18/2025 11:53 AM CLIENT LIAISON Bilateral No evidence of malignancy in either breast. OVERALL BI-RADS FINAL ASSESSMENT: 1 - Negative RECOMMENDATION: Recommend bilateral annual screening mammography. Narrative 01/18/2025 11:53 AM CLIENT LIAISON EXAMINATION: Screening Mammogram Bilateral W Alejandro: 01/18/2025 COMPARISON: Relevant prior studies available at the time of interpretation were reviewed, including the most recent mammogram on: 01/13/2024. TECHNIQUE: Mammography was performed with 2D and 3D digital breast tomosynthesis (DBT) images. CAD was utilized. BREAST PARENCHYMAL COMPOSITION: There are scattered areas of fibroglandular density. FINDINGS: Bilateral There is no suspicious mass, calcification, or architectural distortion in either breast. Result [facility] Radha Isabel MD [facility] MAMMO PROCEDURES Final Result * Hepatitis panel, acute (02/19/2022 10:39 AM CLIENT LIAISON) Hep A IgM Nonreactive Nonreactive LIVE Comment: [...] LIVE HAHN Blood 02/19/2022 10:3 9 AM CLIENT LIAISON 02/19/2022 11:01 AM CLIENT LIAISON us Enrrique Silvestre MD LAB MICROBIOLOGY - GENERA L ORDERABLES Final Result [facility]IVE [address] [facility] Department [place] [address] from Last 3 Months or Most Recently Relevant to Health Maintenance Insurance [employer] [place]roll [place] [employer]roll [facility] Address: [address] [place] [address] MEDICARE AET SENIOR SUPPLEMENT MEDICARE AETNA SENIOR SUPPLEMENT Advance Directives For more information, please contact: [phone] * Full Code (Latest Code Status on File) Date Activated Date Inactivated Comments 02/18/2022 12:32 AM 02/20/2022 6:15 PM Care Teams Steam Gigger Relationship Specialty Start Date End Date Gwendolyn Avina MD [address] [place] [address] PCP - General 06/08/16 Crescencio Riojas MD [address] [facility] [phone] [place] [address] Surgeon Colon and Rectal Surgery 04/09/22
--- OUTSIDE RECORDS SUMMARY | 2025-02-16 11:37 | XMS_ITS | Patient Health Record ---
Author Organization [facility] Address [address] [place], [place] [address] Care Team Providers Care Postal Delivery Officer Name Role Phone JOSH ALBERT Unavailable [phone] Gwendolyn Avina Unavailable Unavailable Reason For Referral No Information Social History Social History Additional Details Category Social Info Options Details Migrated Social History Migrated Social History Smoking Status : Never smoked , Alcohol intake : , History of tobacco use : Plan Of Treatment No Information Insurance Providers Payer Name Payer Address Payer Phone Subscriber Number Group Number Insured Name Patient Relationship to Insured Coverage Start Date Coverage End Date [facility] ([facility]) ATTN CLAIMS [address] [place] [address] [id number] Self - patient is the insured
--- OUTSIDE RECORDS SUMMARY | 2025-02-16 11:37 | XMS_ITS | Clinical Summary ---
Author Organization [facility] Address [address] [place] [address] Care Team Providers Care Cushion Cover Inspector Name Role Phone Gwendolyn Avina MD Primary Care Provider Allergies No known active allergies Medications pantoprazole EC (PROTONIX) 40 MG tablet Take 1 tablet (40 mg total) by mouth daily. Active valsartan (DIOVAN) 80 MG tablet Take 1 tablet (80 mg total) by mouth daily. Active montelukast (SINGULAIR) 10 MG tablet Take 1 tablet (10 mg total) by mouth nightly at bedtime. Active carvedilol (COREG) 12.5 MG tablet Take 1 tablet (12.5 mg total) by mouth 2 (two) times daily. Active atorvastatin (LIPITOR) 40 MG tablet Take 1 tablet (40 mg total) by mouth nightly at bedtime. Active Active Problems No known active problems Encounters Date Type Department Care Team Description 01/08/2025 10:03 AM CDT Anesthesia [place] [address] Miguel Atkinson CRNA 01/08/2025 9:41 AM CDT - 01/08/2025 10:11 AM CDT [place] [address] Kaylin Saini MD extraction cataract RIGHT eye with lens implant 01/08/2025 8:43 AM CDT - 01/08/2025 10:54 AM CDT Hospital Encounter [place] [address] Kaylin Saini MD Discharge Disposition: Home or Self Care (Routine Discharge) 01/08/2025 Travel 01/03/2025 Travel from Last 3 Months Social History Tobacco Use Types Packs/Day Years Used Date Smoking Tobacco: Never Smokeless Tobacco: Never Tobacco Cessation:Counseling Given: Not Answered Alcohol Use Standard Drinks/Week Comments Yes 0 (1 standard drink = 0.6 oz pur e alcohol) couple times a week Comments No Sex and Gender Information Value Date Recorded Sex Assigned at Female 01/08/2025 8:41 AM CDT Legal Sex Female 5:38 PM CDT Gender Identity Not on file Sexual Orientation Not on file Last Filed Vital Signs Vital Sign Reading Time Taken Comments Blood Pressure 147/70 01/08/2025 10:30 AM CDT Pulse 68 01/08/2025 10:30 AM CDT Temperature 36.1 C (96.9 F) 01/08/2025 9:28 AM CDT Respiratory Rate 16 01/08/2025 9:28 AM CDT Oxygen Saturation 99% 01/08/2025 10:30 AM CDT Inhaled Oxygen Concentration - - Weight 54.4 kg (120 lb) 01/03/2025 10:12 AM CDT Height 152.4 cm (5') 01/03/2025 10:12 AM CDT Body Mass Index 23.44 01/03/2025 10:12 AM CDT Plan of Treatment Health Maintenance Due Date Last Done Comments Colorectal Cancer Screening Colonoscopy (10 Years) 1955 Hepatitis C 1972 Annual Medicare Wellness Visit 07/31/2019 Dexa Scan (General) 07/31/2019 DTaP, Tdap and Td Vaccines (2 - Td or Tdap) 10/05/2023 10/04/2013 COVID-19 Vaccine ( season) 2024 03/10/2024, 01/11/2023, 01/07/2022, Additional history exists Mammogram Screening 01/12/2026 01/13/2024, 01/04/2023, 12/29/2021, Additional history exists Zoster Vaccines Completed 07/27/2018, 03/0 11/2018, 11/14/2014 Pneumococcal Vaccine: 50+ Years Completed 11/08/2019, 06/12/2015 RSV Immunization or 60+ Years Completed 12/13/2023 Influenza Adult Completed 12/07/2024, 11/15, 12/19/2021, Additional history exists Hepatitis A Vaccines Aged Out No long er eligible based on patient's age to complete this topic Meningococcal B Vaccine Aged Out No l onger eligible based on patient's age to complete this topic Meningococcal Vaccine Aged Out No conner jayy eligible based on patient's age to complete this topic RSV Immunizations Under 20 Months Aged Out No longer eligible based on patient's age to complete this topic Medical Devices Implanted Type Area Room Service Bellhop Device Identifier Shelf Expiration Date Model / Serial / Lot Iol Tecnis Toric [id number] - [id number] Implanted:Qty: 1 on 01/08/2025 by Kaylin Saini MD at [facility] Lens Right: Eye [employer] [id number] 07/11/2029 [id number] / [id number] / Procedures Procedure Name Priority Date/Time Associated Diagnosis Comments REMV CATARACT EXTRACAP,INSERT LENS 01/08/2025 9:58 AM CDT h25.9 from Last 3 Months [place] [address] Care Teams Cushion Cover Inspector Relationship Specialty Start Date End Date Gwendolyn Avina MD [address] [place] [address] PCP - General INTERNAL MEDICINE 12/21/24
[2025-02-16 11:40] LABS: Hematocrit 41.7 % (35.0-42.0); Hemoglobin 13.7 g/dL (11.7-13.8); Mean Corpuscular HGB Conc 32.9 g/dL (32-36); Mean Corpuscular Hemoglobin 31.8 pg (27.0-31.0); Mean Corpuscular Volume 96.8 fL (78.0-102.0); Platelet Count Result 278 K/mm3 (150-420); Red Blood Count 4.31 M/mm3 (4.20-5.40); White Blood Count 6.8 K/mm3 (4.8-10.8)
[2025-02-16 11:42] LABS: Add Urine Microscopic? NO; Appearance Urine Clear (Clear); Glucose Urine UA Negative (Negative); Leukocyte Esterase Ur Negative (Negative); Nitrate Urine Negative (Negative); Specific Grav Ur 1.010 (1.010-1.020)
[2025-02-16 11:59] LABS: INR 1.0; Prothrombin Time 10.6 Seconds (9.50-12.1)
[2025-02-16 12:15] LABS: Alanine Aminotransferase 28 U/L (6-35); Albumin Level 4.8 g/dL (3.5-5.1); Alkaline Phosphatase 66 U/L (38-126); Anion Gap 9 mmol/L (4-12); Aspartate Amino Transferase 35 U/L (14-36); Bilirubin,Total 0.9 mg/dL (0.2-1.3); Blood Urea Nitrogen 24 mg/dL (7-17); Calcium 9.7 mg/dL (8.4-10.2); Carbon Dioxide 27 mmol/L (22-30); Chloride 104 mmol/L (98-107); Estimated Glomerular Filt Rate 56; Glucose 104 mg/dL (65-110); Osmolality Calculated 294 mOsm/kg (285-295); Potassium 4.8 mmol/L (3.4-5.0); Sodium 140 mmol/L (137-145); Total Protein 7.6 g/dL (6.3-8.2)
== END 2025-02-16 11:26 | disposition home or self-care (01) ==
PROVIDERS: PCP Internal Medicine; Visit Provider Obstetrics & Gynecology
DX: N18.2 Chronic kidney disease, stage 2 (mild) (principal); K76.0 Fatty (change of) liver, not elsewhere classified; D39.0 Neoplasm of uncertain behavior of uterus
CPT/HCPCS: 36415; 80053; 81003; 85027; 85610